=== PATIENT | male | born 1960 | race Caucasian/White ===

== ENCOUNTER → 2016-04-02 | Outpatient (CLI) | payer BC ==
[~2016-04-02] MED LIST: ACET-1256 PO; MULT-506 PO; RIZA10TA19 PO; WARF-283 PO
[2016-04-02 13:56] LABS: INR 2.7 (0.9-1.1); PROTHROMBIN TIME (PATIENT) 30.2 SECONDS (9.0-12.0)
== END | disposition home or self-care (01) ==
LOC: C.LABBC 12:17
PROVIDERS: ATTEND Internal Medicine
DX: I26.99 Other pulmonary embolism without acute cor pulmonale (principal)

== ENCOUNTER → 2016-07-14 | Outpatient (CLI) | payer BC | END | disposition home or self-care (01) | LOC: C.LAB 07:49 | PROVIDERS: ATTEND Nurse Practitioner | DX: C61 Malignant neoplasm of prostate (principal) ==

== ENCOUNTER → 2017-01-07 | Outpatient (CLI) | payer BC ==
[2017-01-07 10:45] LABS: INR 1.2 (0.9-1.1); PROTHROMBIN TIME (PATIENT) 12.9 SECONDS (9.0-12.0)
== END | disposition home or self-care (01) ==
LOC: C.LAB 09:11
PROVIDERS: ATTEND Internal Medicine
DX: D68.59 Other primary thrombophilia (principal); Z86.711 Personal history of pulmonary embolism; I82.403 Acute embolism and thrombosis of unspecified deep veins of lower extremity, bilateral

== ENCOUNTER 2022-08-21 21:58 | Inpatient (IN) ==
[2022-08-21 22:28] LABS: Basophils # (auto) 0.09 K/uL (0-0.2); Basophils % (auto) 0.7 %; Eosinophils # (auto) 0.01 K/uL (0-0.50); Eosinophils % (auto) 0.1 %; Hemoglobin 13.1 g/dl (14.0-18.0); Immature Granulocytes # (auto) 0.03 K/uL (0.01-0.20); Immature Granulocytes % (auto) 0.2 %; Lymphocytes # (auto) 1.32 K/uL (1.2-3.4); Lymphocytes % (auto) 9.9 %; Mean Corpuscular Hemoglobin 30.6 pg (25.0-34.0); Mean Corpuscular Hgb Conc 33.6 g/dL (32.0-36.0); Mean Corpuscular Volume 91.1 fL (80.0-100.0); Mean Platelet Volume 9.3 fL (9.4-12.4); Monocytes # (auto) 1.07 K/uL (0.11-0.59); Monocytes % (auto) 8.1 %; Neutrophils # (auto) 10.75 K/uL (1.40-6.50); Platelet Count 376 K/uL (130-400); RDW Coefficient of Variation 14.3 % (11.5-14.5); RDW Standard Deviation 47.5 fL (36.4-46.3); Red Blood Count 4.28 M/uL (4.70-6.10); White Blood Count 13.27 K/ul (4.8-10.8)
[2022-08-21 22:45] LABS: Alanine Aminotransferase 13 U/L (7-52); Albumin Globulin Ratio 1.1 (0.9-2); Albumin Level 4.2 gm/dl (3.4-5.0); Alkaline Phosphatase 86 U/L (34-104); Anion Gap 7 (3-11); Aspartate Aminotransferase 19 U/L (13-39); BUN Creatinine Ratio 15.7 (10-20); Bilirubin,Total 0.7 mg/dl (0.2-1.0); Blood Urea Nitrogen 22 mg/dl (6-23); Calcium 9.3 mg/dl (8.6-10.3); Carbon Dioxide 25 mmol/L (21-32); Chloride 105 mmol/L (98-107); Est GFR (African American) 61.5 ml/min; Est GFR (Non-African American) 53.1 ml/min; Globulin 3.8 gm/dl (2.5-4.0); Glucose 125 mg/dl (70-99(Fasting)); Potassium 4.2 mmol/L (3.5-5.1); Sodium 137 mmol/L (136-145)
[2022-08-21 22:51] LABS: Troponin I High Sensitivity 14.4 pg/ml (0-20)
[2022-08-21 22:54] LABS: INR 5.2 (0.9-1.1); Partial Thromboplastin Ratio 1.7; Prothrombin Time 51.2 Seconds (9.0-12.0)
[2022-08-21 23:01] LABS: Partial Thromboplastin Time 47.9 Seconds (21.0-31.0)
[2022-08-21] MEDS ORDERED: ONDANSETRON INJ 2 MG/ML 2 ML VIAL IV STA (23:36)
[2022-08-21] MEDS ORDERED: MoRPHine SULFATE 4 MG/ML 1 ML CARP\\VIAL IV STA (23:36)
[2022-08-21] MEDS ORDERED: SODIUM CHLORIDE 0.9% 1000ML 1,000 ML IV ONE (23:37)
--- NOTE | 2022-08-21 23:39 | Emergency Department Note ---
Impression & Plan Abdominal mass ADMIT ED Provider Note HPI: The patient is a 62-year-old gentleman with history of DVT, currently on Coumadin, presents emergency department with chief complaint of left-sided abdominal pain that has been ongoing since around 8:30 this morning. Patient states that he has had worsening pain throughout the day, states earlier this afternoon he was in the shower and also had an episode of lightheadedness but no syncope. Patient denies any vomiting but states he does have nausea. Denies any dysuria or urinary retention. On arrival here to the ED the patient is alert, he is in no acute distress on my initial assessment but does complain of some left-sided abdominal discomfort. ROS: - Per HPI *Outpatient medications and allergy history reviewed. *Pertinent external medical records reviewed. PE: General: Alert HEENT: Normocephalic, trachea midline Eyes: Extraocular eye movement is intact, no scleral erythema Pulmonary: Clear to auscultation bilaterally, no wheezing Cardio: Regular rate and rhythm GI: Abdomen is soft to palpation, there is left-sided abdominal tenderness to palpation without guarding or rigidity : No suprapubic tenderness MSK: No evidence of trauma or malformation of the extremities, no edema Skin: No evidence of rash Neuro: Alert, no focal deficits Psychiatric: Cooperative stunt person: (As interpreted by myself): - An order was placed for continuous cardiac monitoring - Patient was noted to be in sinus rhythm with a rate of 95 EKG: (As interpreted by myself): Rate: 78 Rhythm: Normal sinus rhythm Intervals: Within normal limits ST changes: No ST elevation Time: 2209 Interventions provided in ED: -IV fluid bolus, IV morphine, IV Zofran Differential Diagnosis: Kidney stone, diverticulitis flare, perforated viscus, small bowel obstruction, intra-abdominal mass, amongst other potential pathologies. Medical Decision Making: Shortly after the patient arrived IV was established and lab work obtained, patient was maintained on radiographer cardiac catheterization, lab work obtained shows leukocytosis of 13.2, blood cultures drawn, hemoglobin stable at 13.1, platelet count is within normal limits, coagulation studies do show INR is supratherapeutic at 5.2, patient is on Coumadin, CMP does not show any evidence of acute kidney injury, troponin is negative, low suspicion for PE given that the patient is anticoagulated on Coumadin with supratherapeutic INR, low suspicion for ACS given negative troponin and reassuring EKG in addition to the lack of any chest pain. Chest x-ray reviewed by myself does not show any evidence of acute process. CT imaging of the abdomen pelvis was obtained that shows evidence of a large mass causing chronic appearing left-sided hydronephrosis and partially encasing the left-sided ureter measuring approximately 13 cm in width. Unclear origin of the mass. I did discuss this finding with on-call urology, Dr. Goodrich, recommends the patient be admitted and they will plan for advanced imaging and further management in regards to potential biopsy. Case was then discussed with the on-call hospitalist, Dr. Harris, he was in agreement for admission with urology consultation. Patient's urinalysis shows evidence of 2+ blood but no evidence of infection. Patient was informed of the above findings. He tells me that his pain is improved following IV morphine here in the ED. He is in agreement for admission with urology consultation as is his son at the bedside. Patient was placed for admission in stable condition. Consultants: -Urology, Dr. Munguia -Hospitalist, Dr. Harris Disposition discussion held by myself with: -Patient and his son at the bedside Diagnosis: 1. Intra-abdominal mass, left-sided 2. Hydronephrosis, left-sided, chronic 3. Hematuria, acute 4. Left-sided abdominal pain, acute Disposition: Admission Black Bright DO Emergency Medicine Past Med/Surg History Medical History DVT (deep venous thrombosis) (~2011) History of COVID-19 History of prostate cancer History of pulmonary embolism (~2011) Hx of melanoma of skin Hydronephrosis Hypertension Migraine headache On anticoagulant therapy Primary hypercoagulable state Recurrent deep vein thrombosis (DVT) of both lower extremities Renal colic Sleep apnea Squamous cell carcinoma, face Surgical History H/O prostatectomy (~2014) H/O radical excision of skin lesion History of colonoscopy History of hernia repair History of left cataract extraction Hx of right cataract extraction Hx of splenectomy S/P IVC filter Status post Mohs surgery Family History Mother Cervical cancer Uterine cancer Sister Uterine cancer Father Diabetes Other No family history of adverse response to anesthesia Denies family history of Ovarian cancer Prostate cancer Breast cancer Lung cancer Colorectal cancer Social History Smoking Status: Former smoker Second Hand Exposure: No; Do You Dip or Chew Tobacco: No; Hx Alcohol Use: Yes Alcohol type: beer Alcohol Intake Frequency: Monthly or Less Hx Substance Use: No Preferred Language: Guatemalan Communication Ability: Effective Visual Impairment: No Limitations Hearing Ability: Normal Manager Of Business Operations Required: No Beliefs That Will Affect Care: None marital status: Current Living Situation: Alone current occupational status: employed Feels Safe at Home: Yes Childhood Exposure to Second-Hand Smoke: Yes Diet: regular caffeine: Yes Dental Care, Regularly: Yes Physical Activity Frequency: 5-6 Times per Week Seatbelt Use: sometimes Sunscreen Use: Yes Do you think of yourself as: straight/heterosexual Assistive Devices: None Allergies Allergies Allergy/AdvReac Type Severity Reaction Status Date / Time No Known Drug Allergies Allergy Verified 07/18/22 08:35 Home Meds Home Medications Medication Instructions Recorded Confirmed acetaminophen 500 mg tablet 500 mg PO Q6H PRN 05/03/22 07/18/22 (Tylenol Extra Strength) Previous Rx's Medication Instructions Recorded rizatriptan 10 mg disintegrating 10 mg PO Q2H PRN migraine headache 10/29/18 tablet #18 tabs warfarin 1 mg tablet See Rx Instructions .Route 11/21/21 .COMPLEX #90 tabs warfarin 5 mg tablet See Rx Instructions .Route 11/21/21 .COMPLEX #90 tabs amlodipine 5 mg tablet 5 mg PO QAM #90 tabs 05/03/22 warfarin 2 mg tablet See Rx Instructions .Route 05/03/22 .COMPLEX #135 tabs olmesartan 20 mg tablet 20 mg PO DAILY #30 tabs 06/06/22 Results & Data (ED) Vital Signs Vital Signs - 24 hr 08/21/22 22:03 08/21/22 22:19 08/21/22 22:19 Temperature 36.7 C Temperature Source Temporal Artery Scan Pulse Rate 84 Pulse Rate [Apical] 79 Respiratory Rate 18 19 Respiratory Effort / Characteristics Non-Labored Spontaneous Respiratory Depth Normal Normal Blood Pressure 166/97 H Blood Pressure [Right Arm] 188/106 H Blood Pressure Mean 120 Blood Pressure Mean [Right Arm] 133 Blood Pressure Position Sitting Pulse Oximetry 97 97 Oxygen Delivery Method Room Air Room Air Room Air Sepsis Recent Fever Within 48 Hours No Sepsis New/Unexplained Change in Mental Status No Sepsis Action Taken by Nursing No Action Required 08/21/22 22:19 08/21/22 22:24 08/21/22 22:45 Temperature Temperature Source Pulse Rate 84 Pulse Rate [Apical] 110 H Respiratory Rate 19 Respiratory Effort / Characteristics Respiratory Depth Blood Pressure Blood Pressure [Right Arm] 172/97 H Blood Pressure Mean Blood Pressure Mean [Right Arm] 122 Blood Pressure Position Pulse Oximetry 97 95 Oxygen Delivery Method Room Air Room Air Sepsis Recent Fever Within 48 Hours Sepsis New/Unexplained Change in Mental Status Sepsis Action Taken by Nursing 08/22/22 00:16 Temperature Temperature Source Pulse Rate 93 H Pulse Rate [Apical] Respiratory Rate 12 Respiratory Effort / Characteristics Respiratory Depth Blood Pressure 195/110 H Blood Pressure [Right Arm] Blood Pressure Mean 138 Blood Pressure Mean [Right Arm] Blood Pressure Position Pulse Oximetry Oxygen Delivery Method Sepsis Recent Fever Within 48 Hours Sepsis New/Unexplained Change in Mental Status Sepsis Action Taken by Nursing Laboratory Data 08/21/22 22:08 08/21/22 22:08 Lab Results 08/21/22 08/21/22 08/21/22 Range/Units 22:08 22:08 22:08 WBC 13.27 H (4.8-10.8) K/ul RBC 4.28 L (4.70-6.10) M/uL Hgb 13.1 L (14.0-18.0) g/dl Hct 39.0 L (42.0-52.0) % MCV 91.1 (80.0-100.0) fL MCH 30.6 (25.0-34.0) pg MCHC 33.6 (32.0-36.0) g/dL RDW Std Deviation 47.5 H (36.4-46.3) fL RDW Coeff of Ángel 14.3 (11.5-14.5) % Plt Count 376 (130-400) K/uL MPV 9.3 L (9.4-12.4) fL Immature Gran % (Auto) 0.2 % Neut % (Auto) 81.0 % Lymph % (Auto) 9.9 % [place] % (Auto) 8.1 % Eos % (Auto) 0.1 % Baso % (Auto) 0.7 % Neut # (Auto) 10.75 H (1.40-6.50) K/uL Lymph # (Auto) 1.32 (1.2-3.4) K/uL [place] # (Auto) 1.07 H (0.11-0.59) K/uL Eos # (Auto) 0.01 (0-0.50) K/uL Baso # (Auto) 0.09 (0-0.2) K/uL Immature Gran # (Auto) 0.03 (0.01-0.20) K/uL PT 51.2 H (9.0-12.0) Seconds INR 5.2 H (0.9-1.1) APTT 47.9 H* (21.0-31.0) Seconds PTT Ratio 1.7 Sodium 137 (136-145) mmol/L Potassium 4.2 (3.5-5.1) mmol/L Chloride 105 (98-107) mmol/L Carbon Dioxide 25 (21-32) mmol/L Anion Gap 7 (3-11) BUN 22 (6-23) mg/dl Creatinine 1.40 (0.6-1.4) mg/dl Est Cr Clr Drug Dosing Not Reportable Est GFR ( Amer) 61.5 ml/min Est GFR (Non-Af Amer) 53.1 ml/min BUN/Creatinine Ratio 15.7 (10-20) Glucose 125 H (70-99(Fasting)) mg/dl Calcium 9.3 (8.6-10.3) mg/dl Total Bilirubin 0.7 (0.2-1.0) mg/dl AST 19 (13-39) U/L ALT 13 (7-52) U/L Alkaline Phosphatase 86 (34-104) U/L Troponin I High Sens 14.4 (0-20) pg/ml Total Protein 8.0 (6.0-8.3) gm/dl Albumin 4.2 (3.4-5.0) gm/dl Globulin 3.8 (2.5-4.0) gm/dl Albumin/Globulin Ratio 1.1 (0.9-2) Urine Color Urine Appearance (Clear) Urine pH (4.5-7.5) Ur Specific [place] (1.000-1.030) Urine Protein (Negative) Urine Glucose (UA) (Negative) Urine Ketones (Negative) Urine Blood (Negative) Urine Nitrite (Negative) Urine Bilirubin (Negative) Urine Urobilinogen (Negative) Ur Leukocyte Esterase (Negative) Urine WBC (Auto) (0-5) /hpf Urine RBC (Auto) (0-4) /hpf U Hyaline Cast (Auto) (0-5) /lpf U Epithel Cells (Auto) (0-5) /lpf Urine Bacteria (Auto) (Negative) SARS-CoV-2, RNA, NAAT (NEGATIVE) 08/22/22 08/22/22 Range/Units 00:50 01:10 WBC (4.8-10.8) K/ul RBC (4.70-6.10) M/uL Hgb (14.0-18.0) g/dl Hct (42.0-52.0) % MCV (80.0-100.0) fL MCH (25.0-34.0) pg MCHC (32.0-36.0) g/dL RDW Std Deviation (36.4-46.3) fL RDW Coeff of Ángel (11.5-14.5) % Plt Count (130-400) K/uL MPV (9.4-12.4) fL Immature Gran % (Auto) % Neut % (Auto) % Lymph % (Auto) % [place] % (Auto) % Eos % (Auto) % Baso % (Auto) % Neut # (Auto) (1.40-6.50) K/uL Lymph # (Auto) (1.2-3.4) K/uL [place] # (Auto) (0.11-0.59) K/uL Eos # (Auto) (0-0.50) K/uL Baso # (Auto) (0-0.2) K/uL Immature Gran # (Auto) (0.01-0.20) K/uL PT (9.0-12.0) Seconds INR (0.9-1.1) APTT (21.0-31.0) Seconds PTT Ratio Sodium (136-145) mmol/L Potassium (3.5-5.1) mmol/L Chloride (98-107) mmol/L Carbon Dioxide (21-32) mmol/L Anion Gap (3-11) BUN (6-23) mg/dl Creatinine (0.6-1.4) mg/dl Est Cr Clr Drug Dosing Est GFR ( Amer) ml/min Est GFR (Non-Af Amer) ml/min BUN/Creatinine Ratio (10-20) Glucose (70-99(Fasting)) mg/dl Calcium (8.6-10.3) mg/dl Total Bilirubin (0.2-1.0) mg/dl AST (13-39) U/L ALT (7-52) U/L Alkaline Phosphatase (34-104) U/L Troponin I High Sens (0-20) pg/ml Total Protein (6.0-8.3) gm/dl Albumin (3.4-5.0) gm/dl Globulin (2.5-4.0) gm/dl Albumin/Globulin Ratio (0.9-2) Urine Color Yellow Urine Appearance Clear (Clear) Urine pH 7.5 (4.5-7.5) Ur Specific [place] 1.022 (1.000-1.030) Urine Protein Negative (Negative) Urine Glucose (UA) Negative (Negative) Urine Ketones Trace H (Negative) Urine Blood 2+ H (Negative) Urine Nitrite Negative (Negative) Urine Bilirubin Negative (Negative) Urine Urobilinogen Negative (Negative) Ur Leukocyte Esterase Negative (Negative) Urine WBC (Auto) 0 (0-5) /hpf Urine RBC (Auto) 10-30 H (0-4) /hpf U Hyaline Cast (Auto) 0 (0-5) /lpf U Epithel Cells (Auto) 0-5 (0-5) /lpf Urine Bacteria (Auto) Negative (Negative) SARS-CoV-2, RNA, NAAT NEGATIVE (NEGATIVE) Administered Medications Discontinued Medications Sodium Chloride (Nss 1000ml) 1,000 mls @ 999 mls/hr IV .Q1H1M ONE Stop: 08/22/22 00:37 Last Infusion: 08/22/22 00:52 Dose: 0 mls/hr Documented By: Admin: 08/21/22 23:44 Dose: 999 mls/hr Documented By: KAUSHAL Ioversol (Optiray 320 100ml) 100 ml IV ONCE ONE Stop: 08/21/22 23:59 Last Admin: 08/21/22 23:58 Dose: 87 ml Documented By: SHANIQUA Morphine Sulfate (Morphine Sulfate 4 Mg/Ml 1 Ml Carp\Vial) 4 mg IV NOW STA Stop: 08/21/22 23:37 Last Admin: 08/21/22 23:41 Dose: 4 mg Documented By: KAUSHAL Morphine Sulfate (Morphine Sulfate 4 Mg/Ml 1 Ml Carp\Vial) 4 mg IV NOW STA Stop: 08/22/22 00:23 Last Admin: 08/22/22 00:25 Dose: 4 mg Documented By: KAUSHAL Ondansetron HCl (Ondansetron Inj 2 Mg/Ml 2 Ml Vial) 4 mg IV NOW STA Stop: 08/21/22 23:37 Last Admin: 08/21/22 23:40 Dose: 4 mg Documented By: KAUSHAL Imaging Data Radiologist's Impression: Abdomen/Pelvis CT 08/21/22 23:36 Exam(s): CT ABDOMEN + PELVIS With Contrast IV Amt: 87 ml optiray 320 EXAM: CT Abdomen and Pelvis With Intravenous Contrast CLINICAL HISTORY: Reason for exam: Left sided abd pain. TECHNIQUE: Axial computed tomography images of the abdomen and pelvis with intravenous contrast. Automated exposure control was utilized for the study. A dose lowering technique was utilized adhering to the principles of ALARA. CONTRAST: Patient received 87 ml optiray 320 of IV contrast COMPARISON: No relevant prior studies available. FINDINGS: Lung bases: Unremarkable. No mass. No consolidation. ABDOMEN: Liver: Unremarkable. No mass. Gallbladder and bile ducts: Unremarkable. No calcified stones. No ductal dilation. Pancreas: Unremarkable. No mass. No ductal dilation. Spleen: There are nodular implants throughout the abdomen which may reflect splenosis. The spleen is absent. Adrenals: Unremarkable. No mass. Kidneys and ureters: There is severe left-sided hydroureteronephrosis which appears chronic. There is significant associated renal cortical thinning. There is a large soft tissue mass in the region of the left proximal ureter which measures 8.3 x 6.8 x 13.7 cm (image 57 series 2 and image 36 series 300). Extensive left-sided cain-nephric stranding is noted. Stomach and bowel: Unremarkable. No obstruction. No mucosal thickening. PELVIS: Appendix: No findings to suggest acute appendicitis. Bladder: Unremarkable. No mass. Reproductive: Unremarkable as visualized. ABDOMEN and PELVIS: Intraperitoneal space: Unremarkable. No free air. No significant fluid collection. Bones/joints: There is extensive degenerative disease of the thoracolumbar spine. No acute fracture. No dislocation. Soft tissues: Unremarkable. Vasculature: Unremarkable. No abdominal aortic aneurysm. Lymph nodes: Unremarkable. No enlarged lymph nodes. IMPRESSION: 1. Severe left hydronephrosis which appears chronic and is related to a 13 cm mass which appears to encase and invade the ureter. Is unclear if this originates from the ureter or is a extra ureteral process and biopsy would be necessary to make that determination. 2. 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 Metastatic disease could not be excluded in this setting. Electronically signed by: Sunil Naylor MD 08/22/22 00:34 AM Discharge Plan Visit Data Chief Complaint: Chest Pain Stated Complaint: CHEST PAIN,FATIGUE,NEAR SYNCOPE ED Provider: Black Bright Discharge Problem: Abdominal mass Forms Stand Alone Forms: [facility] Prescriptions Prescriptions: No Action warfarin 5 mg tablet See Rx Instructions .ROUTE .COMPLEX Qty: 90 3RF Dose Instruction: TAKE 1 TABLET BY MOUTH ONCE DAILY. SEE PROTOCOL Rx Instructions: TAKE 1 TABLET BY MOUTH ONCE DAILY. SEE PROTOCOL warfarin 1 mg tablet See Rx Instructions .ROUTE .COMPLEX Qty: 90 3RF Dose Instruction: Take 1 tablet by mouth daily Rx Instructions: Take 1 tablet by mouth daily acetaminophen [Tylenol Extra Strength] 500 mg tablet 500 mg PO Q6H PRN warfarin 2 mg tablet See Rx Instructions .ROUTE .COMPLEX Qty: 135 1RF Dose Instruction: TAKE 1 & 1/2 (ONE & ONE-HALF) TABLETS BY MOUTH ONCE DAILY Rx Instructions: TAKE 1 & 1/2 (ONE & ONE-HALF) TABLETS BY MOUTH ONCE DAILY amlodipine 5 mg tablet 5 mg PO QAM Qty: 90 3RF Rx Instructions: Take 1 tablet by mouth once daily olmesartan 20 mg tablet 20 mg PO DAILY Qty: 30 2RF rizatriptan 10 mg tablet,disintegrating 10 mg PO Q2H PRN (Reason: migraine headache) Qty: 18 0RF Referrals Referrals: Russell Roger MD [Primary Care Provider] -
[2022-08-21] MEDS ORDERED: OPTIRAY 320 100ml IV ONE (23:58)
[2022-08-22] MEDS ORDERED: MoRPHine SULFATE 4 MG/ML 1 ML CARP\\VIAL IV STA (00:22)
--- NOTE | 2022-08-22 00:35 | CT Scan Report ---
Exam(s): CT ABDOMEN + PELVIS With Contrast IV Amt: 87 ml optiray 320 EXAM: CT Abdomen and Pelvis With Intravenous Contrast CLINICAL HISTORY: Reason for exam: Left sided abd pain. TECHNIQUE: Axial computed tomography images of the abdomen and pelvis with intravenous contrast. Automated exposure control was utilized for the study. A dose lowering technique was utilized adhering to the principles of ALARA. CONTRAST: Patient received 87 ml optiray 320 of IV contrast COMPARISON: No relevant prior studies available. FINDINGS: Lung bases: Unremarkable. No mass. No consolidation. ABDOMEN: Liver: Unremarkable. No mass. Gallbladder and bile ducts: Unremarkable. No calcified stones. No ductal dilation. Pancreas: Unremarkable. No mass. No ductal dilation. Spleen: There are nodular implants throughout the abdomen which may reflect splenosis. The spleen is absent. Adrenals: Unremarkable. No mass. Kidneys and ureters: There is severe left-sided hydroureteronephrosis which appears chronic. There is significant associated renal cortical thinning. There is a large soft tissue mass in the region of the left proximal ureter which measures 8.3 x 6.8 x 13.7 cm (image 57 series 2 and image 36 series 300). Extensive left-sided cain-nephric stranding is noted. Stomach and bowel: Unremarkable. No obstruction. No mucosal thickening. PELVIS: Appendix: No findings to suggest acute appendicitis. Bladder: Unremarkable. No mass. Reproductive: Unremarkable as visualized. ABDOMEN and PELVIS: Intraperitoneal space: Unremarkable. No free air. No significant fluid collection. Bones/joints: There is extensive degenerative disease of the thoracolumbar spine. No acute fracture. No dislocation. Soft tissues: Unremarkable. Vasculature: Unremarkable. No abdominal aortic aneurysm. Lymph nodes: Unremarkable. No enlarged lymph nodes. IMPRESSION: 1. Severe left hydronephrosis which appears chronic and is related to a 13 cm mass which appears to encase and invade the ureter. Is unclear if this originates from the ureter or is a extra ureteral process and biopsy would be necessary to make that determination. 2. 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 Metastatic disease could not be excluded in this setting. Electronically signed by: Sunil Naylor MD 08/22/22 00:34 AM
[2022-08-22 01:18] LABS: Appearance Urine Clear (Clear); Bacteria Urine Automated Negative (Negative); Bilirubin Urine Negative (Negative); Blood Urine 2+ (Negative); Cast Urine Automated 0 /lpf (0-5); Color Urine Yellow; Epithelial Cell Urine Auto 0-5 /lpf (0-5); Glucose Urine UA Negative (Negative); Ketones Urine Trace (Negative); Leukocyte Esterase Urine Negative (Negative); Nitrite Urine Negative (Negative); Protein Urine Negative (Negative); Specific Gravity Urine 1.022 (1.000-1.030); Urobilinogen Urine Negative (Negative); WBC Urine Automated 0 /hpf (0-5); pH Urine 7.5 (4.5-7.5)
[2022-08-22] MEDS ORDERED: ACETAMINOPHEN 325 MG TAB PO PRN (03:29)
--- NOTE | 2022-08-22 06:00 | History & Physical Report ---
Date of Service August 22, 2022 Assessment & Plan (1) Abdominal mass: Plan: Patient presents to ED with left-sided abdominal pain CT imaging reveals "Severe left hydronephrosis which appears chronic and is related to a 13 cm mass which appears to encase and invade the ureter. Is unclear if this originates from the ureter or is a extra ureteral process and biopsy would be necessary to make that determination.multiple small soft tissue nodules in the upper abdomen which could reflect splenosis as the patient appears to be status post splenectomy. Metastatic disease could not be excluded in this setting." Urology Dr. Goodrich contacted from ED who recommended advanced imaging and possible biopsy in a.m. Defer hematology oncology consultation to a.m. team based on further imaging (2) Hydronephrosis of left kidney: Plan: Patient found to have left-sided hydronephrosis on CT imaging and urinalysis shows evidence of microscopic hematuria. Hydronephrosis also described to be chronic but still urologic intervention would be necessary to preserve renal function. 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 in the past Patient on anticoagulation with Coumadin Obtain daily INR and adjust warfarin dose based on INR target of 2-2.5 (5) Prostate cancer: Plan: Patient is status post prostatectomy No evidence of any acute urine outlet obstruction noted (6) Hypertension: Plan: Continue home dose of amlodipine 5 mg and olmesartan 20 mg with hold parameters Monitor blood pressure trend and titrate meds as tolerated Admission and Anticipated Discharge Date Admission Date: August 22, 2022 History of Present Illness Chief Complaint: Patient presents to ED with complaints of left-sided abdominal pain Primary Care Provider: Russell Roger MD This is a 62-year-old male with past medical history significant history of hypertension, history of hypercoagulable state status post DVT and PE on anti coagulation with Coumadin who presents to the emergency department with complaints of left-sided abdominal pain. Patient reports that he started experiencing intermittent left-sided abdominal pain since the morning but this is progressively worsened over the day and hence patient presents to ED for further evaluation. Patient reports her pain had worsened to a point where he had experienced lightheadedness while he was in the shower but did not have a syncopal episode and and no head trauma reported. Patient however presents to ED due to worsening pain. Patient otherwise denies any chest pain or any other new vomiting symptoms but reports some intermittent nausea. Patient was evaluated in the ED and was found to have elevated INR consistent with with him being on warfarin therapy. CT of the abdomen was obtained that shows a large mass causing left-sided hydronephrosis and partially encasing the left-sided ureter measuring approximately 13 cm in width. Urologist Dr. Munguia contacted by ED and based on his recommendation patient being admitted for further advanced imaging with plans for potential biopsy in a.m. Allergies Allergy/AdvReac Type Severity Reaction Status Date / Time No Known Drug Allergies Allergy Verified 07/18/22 08:35 Home Medications Medication Instructions Recorded Confirmed Type rizatriptan 10 mg disintegrating 10 mg PO Q2H PRN migraine headache 10/29/18 07/18/22 Rx tablet #18 tabs warfarin 1 mg tablet See Rx Instructions .Route 11/21/21 07/18/22 Rx .COMPLEX #90 tabs warfarin 5 mg tablet See Rx Instructions .Route 11/21/21 07/18/22 Rx .COMPLEX #90 tabs acetaminophen 500 mg tablet 500 mg PO Q6H PRN 05/03/22 07/18/22 History (Tylenol Extra Strength) amlodipine 5 mg tablet 5 mg PO QAM #90 tabs 05/03/22 07/18/22 Rx warfarin 2 mg tablet See Rx Instructions .Route 05/03/22 07/18/22 Rx .COMPLEX #135 tabs olmesartan 20 mg tablet 20 mg PO DAILY #30 tabs 06/06/22 07/18/22 Rx Past Med/Surg History Medical History DVT (deep venous thrombosis) (~2011) History of COVID-19 History of prostate cancer History of pulmonary embolism (~2011) Hx of melanoma of skin Hydronephrosis Hypertension Migraine headache On anticoagulant therapy Primary hypercoagulable state Recurrent deep vein thrombosis (DVT) of both lower extremities Renal colic Sleep apnea Squamous cell carcinoma, face Surgical History H/O prostatectomy (~2014) H/O radical excision of skin lesion History of colonoscopy History of hernia repair History of left cataract extraction Hx of right cataract extraction Hx of splenectomy S/P IVC filter Status post Mohs surgery Family History Mother Cervical cancer Uterine cancer Sister Uterine cancer Father Diabetes Other No family history of adverse response to anesthesia Denies family history of Ovarian cancer Prostate cancer Breast cancer Lung cancer Colorectal cancer Social History Smoking Status: Never smoker Second Hand Exposure: No; Do You Dip or Chew Tobacco: No; Hx Alcohol Use: No Hx Substance Use: No Preferred Language: Kinyarwanda Communication Ability: Effective Visual Impairment: No Limitations Hearing Ability: Normal Aircraft Refueller Required: No Beliefs That Will Affect Care: None marital status: Current Living Situation: Alone current occupational status: employed Other Information That Helps Us Care for You: No Feels Safe at Home: Yes Safety Concerns: Feels Safe At This Time Childhood Exposure to Second-Hand Smoke: Yes Diet: regular caffeine: Yes Dental Care, Regularly: Yes Physical Activity Frequency: 5-6 Times per Week Seatbelt Use: sometimes Sunscreen Use: Yes Do you think of yourself as: straight/heterosexual Assistive Devices: Glasses Review of Systems Review of Systems: Constitutional-no fever or chills ENT- no epistaxis, no sore throat Respiratory- no shortness of breath Cardiac-no palpitations, no chest pain, GI- nausea present, no active vomiting, reports abdominal pain - no dysuria, Musculoskeletal-no joint pain, no muscle tenderness Skin-no bruising, no rashes, no pruritus Neuro-no isolated weakness, no paresthesia, Physical Exam Physical Exam: Head and ENT no thyroid enlargement trachea midline Cardiovascular S1-S2 are normal no S3 Lungs bilateral air entry fair no wheezing Abdomen soft mild distention no rebound tenderness Extremity shows trace edema Neurologically no focal deficits Skin shows no rash no cyanosis Results & Data Results & Data Vital Signs (Past 12 Hours) Vital Signs Temp Pulse Pulse Resp BP BP Pulse Ox 08/22/22 05:44 96 H 08/22/22 03:00 81 23 176/95 H 08/22/22 02:30 85 21 08/22/22 01:30 81 22 08/22/22 00:16 93 H 12 195/110 H 08/21/22 22:45 110 H 19 172/97 H 95 08/21/22 22:24 84 08/21/22 22:19 97 08/21/22 22:19 79 19 188/106 H 97 08/21/22 22:19 08/21/22 22:03 36.7 C 84 18 166/97 H 97 O2 Del Method 08/22/22 05:44 08/22/22 03:00 08/22/22 02:30 08/22/22 01:30 08/22/22 00:16 08/21/22 22:45 Room Air 08/21/22 22:24 08/21/22 22:19 Room Air 08/21/22 22:19 Room Air 08/21/22 22:19 Room Air 08/21/22 22:03 Room Air Laboratory Results Short CBC 08/21/22 Range/Units 22:08 WBC 13.27 H (4.8-10.8) K/ul Hgb 13.1 L (14.0-18.0) g/dl Hct 39.0 L (42.0-52.0) % Plt Count 376 (130-400) K/uL BMP 08/21/22 22:08 Sodium 137 Potassium 4.2 Chloride 105 Carbon Dioxide 25 BUN 22 Creatinine 1.40 Glucose 125 H Calcium 9.3 Liver Function 08/21/22 Range/Units 22:08 Total Bilirubin 0.7 (0.2-1.0) mg/dl AST 19 (13-39) U/L ALT 13 (7-52) U/L Alkaline Phosphatase 86 (34-104) U/L Albumin 4.2 (3.4-5.0) gm/dl Urine 08/22/22 Range/Units 00:50 Urine Color Yellow Urine Appearance Clear (Clear) Urine pH 7.5 (4.5-7.5) Ur Specific [place] 1.022 (1.000-1.030) Urine Protein Negative (Negative) Urine Glucose (UA) Negative (Negative) Diagnostic Findings Chest X-Ray 08/21/22 22:06 SINGLE VIEW CHEST CLINICAL HISTORY: Atypical chest pain FINDINGS: An AP, portable, upright chest radiograph is compared to study dated 02/03/2015. Correlation is made with chest CT dated 09/09/2012. The heart is enlarged. The pulmonary vasculature is noncongested. There is bibasilar scarring/atelectasis. No airspace consolidation or large pleural effusion is identified. No pneumothorax is seen. The skeletal structures are osteopenic. The bony thorax is grossly intact. IMPRESSION: Cardiomegaly with no active disease in the chest. ACT 112: Negative or not required by law. Electronically signed by: Eran Swartz M.D. 08/22/2022 7:33 AM Abdomen/Pelvis CT 08/21/22 23:36 Exam(s): CT ABDOMEN + PELVIS With Contrast IV Amt: 87 ml optiray 320 EXAM: CT Abdomen and Pelvis With Intravenous Contrast CLINICAL HISTORY: Reason for exam: Left sided abd pain. TECHNIQUE: Axial computed tomography images of the abdomen and pelvis with intravenous contrast. Automated exposure control was utilized for the study. A dose lowering technique was utilized adhering to the principles of ALARA. CONTRAST: Patient received 87 ml optiray 320 of IV contrast COMPARISON: No relevant prior studies available. FINDINGS: Lung bases: Unremarkable. No mass. No consolidation. ABDOMEN: Liver: Unremarkable. No mass. Gallbladder and bile ducts: Unremarkable. No calcified stones. No ductal dilation. Pancreas: Unremarkable. No mass. No ductal dilation. Spleen: There are nodular implants throughout the abdomen which may reflect splenosis. The spleen is absent. Adrenals: Unremarkable. No mass. Kidneys and ureters: There is severe left-sided hydroureteronephrosis which appears chronic. There is significant associated renal cortical thinning. There is a large soft tissue mass in the region of the left proximal ureter which measures 8.3 x 6.8 x 13.7 cm (image 57 series 2 and image 36 series 300). Extensive left-sided cain-nephric stranding is noted. Stomach and bowel: Unremarkable. No obstruction. No mucosal thickening. PELVIS: Appendix: No findings to suggest acute appendicitis. Bladder: Unremarkable. No mass. Reproductive: Unremarkable as visualized. ABDOMEN and PELVIS: Intraperitoneal space: Unremarkable. No free air. No significant fluid collection. Bones/joints: There is extensive degenerative disease of the thoracolumbar spine. No acute fracture. No dislocation. Soft tissues: Unremarkable. Vasculature: Unremarkable. No abdominal aortic aneurysm. Lymph nodes: Unremarkable. No enlarged lymph nodes. IMPRESSION: 1. Severe left hydronephrosis which appears chronic and is related to a 13 cm mass which appears to encase and invade the ureter. Is unclear if this originates from the ureter or is a extra ureteral process and biopsy would be necessary to make that determination. 2. 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 Metastatic disease could not be excluded in this setting. Electronically signed by: Sunil Naylor MD 08/22/22 00:34 AM Code Status & VTE Plan VTE Prophylaxis Plan VTE Prophylaxis will be ordered: Yes PG Care Time/CCT Total # of Minutes Spent Total Time Spent with Patient: Total time spent is greater than 50% in coordination of care (as documented) at patient's floor/unit and/or counseling patient: Coding Level of Care Code 01587 INT INP/OBS CARE 2/55MIN Diagnoses Abdominal mass R19.00 Hydronephrosis of left kidney N13.30 CKD (chronic kidney disease), stage III N18.30 Primary hypercoagulable state D68.59 Prostate cancer C61 Hypertension I10
[2022-08-22] MEDS ORDERED: MoRPHine SULFATE 2 MG/ML CARP IV PRN ×2 (06:03→08:50)
--- NOTE | 2022-08-22 07:34 | XRay Report ---
SINGLE VIEW CHEST CLINICAL HISTORY: Atypical chest pain FINDINGS: An AP, portable, upright chest radiograph is compared to study dated 02/03/2015. Correlatio n is made with chest CT dated 09/09/2012. The heart is enlarged. The pulmonary vasculature is nonconge sted. There is bibasilar scarring/atelectasis. No airspace consolidation or large pleural effusion is identified. No pneumothorax is seen. The skeletal structures are osteopenic. The bony thorax is marion sly intact. IMPRESSION: Cardiomegaly with no active disease in the chest. ACT 112: Negative or not required by law. Electronically signed by: Eran Swartz M.D. 08/22/2022 7:33 AM
--- NOTE | 2022-08-22 07:50 | Hospitalist Progress Note ---
Date of Service August 22, 2022 Assessment & Plan (1) Abdominal mass: (2) Hydronephrosis of left kidney: Plan Mr. Orozco is a 62 y/o M with PMHX of recurrent DVTs with PE on Coumadin (INR 5.2) s/p IVC filter, prostate cancer s/p prostatectomy 2014, non-metastatic melanoma 2019, and HTN who presented with L-sided abd pain for 1 day #Left abdominal mass mass #Hydronephrosis L kidney CT abd/pelvis: 13cm mass, L-sided severe hydronephrosis, partially encased L- ureter, renal cortical thinning, extensive L-sided perinephric stranding Urology: tissue biopsy next step, as differential for mass is broad at this point. IR on board, believes they can get biopsy through IR retroperitoneal CT approach. INR goal < 1.5 for biopsy, currently at 4.6. Vitamin K administered with INR re- check later today PSA 0.139. WBC 19.63, neutrophils 10.75 Analgesia: Dilaudid 0.75 mg IV q4hr PRN #prostate cancer s/p prostatectomy in 2014 PSA 0.139 on 08/21/22 #HTN Amlodipine 5mg po qam Losartan 50mg po daily #Recurrent DVT IVC filter Holding Coumadin in anticipation of renal mass biopsy FENGI: heart healthy, carb consistent dinner tonight then NPO at midnight. LR fluids at 125 DVT ppx: holding Coumadin in anticipation of renal mass biopsy Full code Admission and Anticipated Discharge Date Admission Date: August 22, 2022 Supervising Physician Co-Signing Physician Notes Medical Student Supervision Note: I was personally present during medical student patient encounter and independently interviewed and examined the patient and verified the medina history and physical, reviewed labs and image studies, discussed the case with Rakesh Martinez and agree with the findings and care plan. left flank pain with CT finding of abdominal mass - awaiting urology intervention once INR below 1.5. s/p Vitamin K. Warfarin on hold. Subjective Mr. Orozco notes that he came to the ED after worsening L-sided abdominal pain reaching 9.5/10 in intensity for the past day. He hasn't had abdominal pain like this before. The pain is constant and worse with movement. Hard to find a comfortable position. It In the week leading up to hospitalization, he experienced dizziness on 08/19 and worsening fatigue. No diarrhea or bloody stool. Had 5 regular bowel movements yesterday. Reports some nausea, no vomiti ng. In addition he notes leg cramps in both legs. His last colonoscopy was 11/06/21 at [facility] which showed small-mouthed diverticula and internal hemorrhoids. In 2019 he got his melanoma excised at [facility], and to his knowledge his melanoma was not metastatic. FHx: no known family history of GI malignancy. SHX: runs heavy equipment. Has not smoked cigarettes in 40 years. His last alcoholic beverage was a couple weeks ago. Review of Systems Review of Systems: All systems reviewed & are unremarkable except as noted in HPI & below Physical Exam Physical Exam: Appearance: lying supine in bed with lights off, appears uncomfortable and in pain, occasionally grimaces in pain Respiratory: Shallow breahting due to pain, CTA BL without rales/rhonchi/wheeze Cardiovascular: Rate in 90s, normal S1/S2, otherwise no M/R/G No LE edema bilaterally Katherine's sign negative bilaterally Gastrointestinal (Abdomen): Abdominal distention, splenectomy scar, 2 minor bruises noted near umbilicus Palpation elicits tenderness in all quadrants, with guarding, L worse than R Firm mass palpated on L flank Musculoskeletal: ROM of L/R hip intact; L hip flexion elicits abdominal pain Results & Data Results & Data Vital Signs (Past 12 Hours) Vital Signs Temp Pulse Pulse Resp BP BP Pulse Ox 08/22/22 06:55 84 08/22/22 05:44 96 H 08/22/22 03:00 81 23 176/95 H 08/22/22 02:30 85 21 08/22/22 01:30 81 22 08/22/22 00:16 93 H 12 195/110 H 08/21/22 22:45 110 H 19 172/97 H 95 08/21/22 22:24 84 08/21/22 22:19 97 08/21/22 22:19 79 19 188/106 H 97 08/21/22 22:19 08/21/22 22:03 36.7 C 84 18 166/97 H 97 O2 Del Method 08/22/22 06:55 08/22/22 05:44 08/22/22 03:00 08/22/22 02:30 08/22/22 01:30 08/22/22 00:16 08/21/22 22:45 Room Air 05/30/23 22:24 08/21/22 22:19 Room Air 08/21/22 22:19 Room Air 08/21/22 22:19 Room Air 08/21/22 22:03 Room Air Diagnostic Findings Laboratory Results WBC 19.63 K/ul (4.8-10.8) H 08/22/22 08:42 RBC 3.99 M/uL (4.70-6.10) L 08/22/22 08:42 Hgb 12.3 g/dl (14.0-18.0) L 08/22/22 08:42 Hct 35.7 % (42.0-52.0) L 08/22/22 08:42 MCV 89.5 fL (80.0-100.0) 08/22/22 08:42 MCH 30.8 pg (25.0-34.0) 08/22/22 08:42 MCHC 34.5 g/dL (32.0-36.0) 08/22/22 08:42 RDW Std Deviation 46.0 fL (36.4-46.3) 08/22/22 08:42 RDW Coeff of Ángel 14.2 % (11.5-14.5) 08/22/22 08:42 Plt Count 334 K/uL (130-400) 08/22/22 08:42 MPV 10.0 fL (9.4-12.4) 08/22/22 08:42 Immature Gran % (Auto) 0.2 % 08/21/22 22:08 Neut % (Auto) 81.0 % 08/21/22 22:08 Lymph % (Auto) 9.9 % 08/21/22 22:08 [place] % (Auto) 8.1 % 08/21/22 22:08 Eos % (Auto) 0.1 % 08/21/22 22:08 Baso % (Auto) 0.7 % 08/21/22 22:08 Neut # (Auto) 10.75 K/uL (1.40-6.50) H 08/21/22 22:08 Lymph # (Auto) 1.32 K/uL (1.2-3.4) 08/21/22 22:08 [place] # (Auto) 1.07 K/uL (0.11-0.59) H 08/21/22 22:08 Eos # (Auto) 0.01 K/uL (0-0.50) 08/21/22 22:08 Baso # (Auto) 0.09 K/uL (0-0.2) 08/21/22 22:08 Immature Gran # (Auto) 0.03 K/uL (0.01-0.20) 08/21/22 22:08 PT 45.5 Seconds (9.0-12.0) H 08/22/22 08:42 INR 4.6 (0.9-1.1) H 08/22/22 08:42 APTT 47.9 Seconds (21.0-31.0) H* 08/21/22 22:08 PTT Ratio 1.7 08/21/22 22:08 Sodium 134 mmol/L (136-145) L 08/22/22 08:42 Potassium 3.9 mmol/L (3.5-5.1) 08/22/22 08:42 Chloride 104 mmol/L (98-107) 08/22/22 08:42 Carbon Dioxide 23 mmol/L (21-32) 08/22/22 08:42 Anion Gap 7 (3-11) 08/22/22 08:42 BUN 16 mg/dl (6-23) 08/22/22 08:42 Creatinine 1.07 mg/dl (0.6-1.4) D 08/22/22 08:42 Est Cr Clr Drug Dosing 77.6 ml/min 08/22/22 08:42 Est GFR ( Amer) 85.2 ml/min 08/22/22 08:42 Est GFR (Non-Af Amer) 73.5 ml/min 08/22/22 08:42 BUN/Creatinine Ratio 15.0 (10-20) 08/22/22 08:42 Glucose 146 mg/dl (70-99(Fasting)) H 08/22/22 08:42 Calcium 9.2 mg/dl (8.6-10.3) 08/22/22 08:42 Total Bilirubin 0.7 mg/dl (0.2-1.0) 08/21/22 22:08 AST 19 U/L (13-39) 08/21/22 22:08 ALT 13 U/L (7-52) 08/21/22 22:08 Alkaline Phosphatase 86 U/L (34-104) 08/21/22 22:08 Troponin I High Sens 14.4 pg/ml (0-20) 08/21/22 22:08 Total Protein 8.0 gm/dl (6.0-8.3) 08/21/22 22:08 Albumin 4.2 gm/dl (3.4-5.0) 08/21/22 22:08 Globulin 3.8 gm/dl (2.5-4.0) 08/21/22 22:08 Albumin/Globulin Ratio 1.1 (0.9-2) 08/21/22 22:08 Prostate Specific Ag 0.139 ng/ml (0-4) 08/21/22 22:15 Urine Color Yellow 08/22/22 00:50 Urine Appearance Clear (Clear) 08/22/22 00:50 Urine pH 7.5 (4.5-7.5) 08/22/22 00:50 Ur Specific [place] 1.022 (1.000-1.030) 08/22/22 00:50 Urine Protein Negative (Negative) 08/22/22 00:50 Urine Glucose (UA) Negative (Negative) 08/22/22 00:50 Urine Ketones Trace (Negative) H 08/22/22 00:50 Urine Blood 2+ (Negative) H 08/22/22 00:50 Urine Nitrite Negative (Negative) 08/22/22 00:50 Urine Bilirubin Negative (Negative) 08/22/22 00:50 Urine Urobilinogen Negative (Negative) 08/22/22 00:50 Ur Leukocyte Esterase Negative (Negative) 08/22/22 00:50 Urine WBC (Auto) 0 /hpf (0-5) 08/22/22 00:50 Urine RBC (Auto) 10-30 /hpf (0-4) H 08/22/22 00:50 U Hyaline Cast (Auto) 0 /lpf (0-5) 08/22/22 00:50 U Epithel Cells (Auto) 0-5 /lpf (0-5) 08/22/22 00:50 Urine Bacteria (Auto) Negative (Negative) 08/22/22 00:50 SARS-CoV-2, RNA, NAAT NEGATIVE (NEGATIVE) 08/22/22 01:10 Impressions Chest X-Ray 08/21/22 22:06 SINGLE VIEW CHEST CLINICAL HISTORY: Atypical chest pain FINDINGS: An AP, portable, upright chest radiograph is compared to study dated 02/03/2015. Correlation is made with chest CT dated 09/09/2012. The heart is enlarged. The pulmonary vasculature is noncongested. There is bibasilar scarring/atelectasis. No airspace consolidation or large pleural effusion is identified. No pneumothorax is seen. The skeletal structures are osteopenic. The bony thorax is grossly intact. IMPRESSION: Cardiomegaly with no active disease in the chest. ACT 112: Negative or not required by law. Electronically signed by: Eran Swartz M.D. 08/22/2022 7:33 AM Abdomen/Pelvis CT 08/21/22 23:36 Exam(s): CT ABDOMEN + PELVIS With Contrast IV Amt: 87 ml optiray 320 EXAM: CT Abdomen and Pelvis With Intravenous Contrast CLINICAL HISTORY: Reason for exam: Left sided abd pain. TECHNIQUE: Axial computed tomography images of the abdomen and pelvis with intravenous contrast. Automated exposure control was utilized for the study. A dose lowering technique was utilized adhering to the principles of ALARA. CONTRAST: Patient received 87 ml optiray 320 of IV contrast COMPARISON: No relevant prior studies available. FINDINGS: Lung bases: Unremarkable. No mass. No consolidation. ABDOMEN: Liver: Unremarkable. No mass. Gallbladder and bile ducts: Unremarkable. No calcified stones. No ductal dilation. Pancreas: Unremarkable. No mass. No ductal dilation. Spleen: There are nodular implants throughout the abdomen which may reflect splenosis. The spleen is absent. Adrenals: Unremarkable. No mass. Kidneys and ureters: There is severe left-sided hydroureteronephrosis which appears chronic. There is significant associated renal cortical thinning. There is a large soft tissue mass in the region of the left proximal ureter which measures 8.3 x 6.8 x 13.7 cm (image 57 series 2 and image 36 series 300). Extensive left-sided cain-nephric stranding is noted. Stomach and bowel: Unremarkable. No obstruction. No mucosal thickening. PELVIS: Appendix: No findings to suggest acute appendicitis. Bladder: Unremarkable. No mass. Reproductive: Unremarkable as visualized. ABDOMEN and PELVIS: Intraperitoneal space: Unremarkable. No free air. No significant fluid collection. Bones/joints: There is extensive degenerative disease of the thoracolumbar spine. No acute fracture. No dislocation. Soft tissues: Unremarkable. Vasculature: Unremarkable. No abdominal aortic aneurysm. Lymph nodes: Unremarkable. No enlarged lymph nodes. IMPRESSION: 1. Severe left hydronephrosis which appears chronic and is related to a 13 cm mass which appears to encase and invade the ureter. Is unclear if this originates from the ureter or is a extra ureteral process and biopsy would be necessary to make that determination. 2. 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 Metastatic disease could not be excluded in this setting. Electronically signed by: Sunil Naylor MD 08/22/22 00:34 AM
--- NOTE | 2022-08-22 08:24 | Electrocardiogram Report ---
Test Reason : Blood Pressure : / mmHG Vent. Rate : 078 BPM Atrial Rate : 078 BPM P-R Int : 134 ms QRS Dur : 100 ms QT Int : 374 ms P-R-T Axes : 039 009 051 degrees QTc Int : 426 ms Normal sinus rhythm Normal ECG When compared with ECG of 05-FEB-2015 14:20, No significant change Confirmed by Nirav Mi ([id number]) on 08/22/2022 8:24:27 AM Referred By: REFERRED SELF Confirmed By:Nirav Mi
[2022-08-22] MEDS ORDERED: MoRPHine SULFATE 4 MG/ML 1 ML CARP\\VIAL IV PRN (08:50)
[2022-08-22] MEDS ORDERED: HYDROmorphone INJ 0.5 MG/0.5 ML SYR IV STA (08:50)
[2022-08-22] MEDS ORDERED: ACETAMINOPHEN 1,000 MG/100 ML VIAL IV STA (08:51)
[2022-08-22] MEDS ORDERED: OLMESARTAN MEDOXOMIL 20 MG TAB PO SCH (09:00)
[2022-08-22] MEDS ORDERED: ACETAMINOPHEN 500 MG TAB PO SCH (09:00)
[2022-08-22] MEDS ORDERED: HYDROmorphone INJ 0.5 MG/0.5 ML SYR IV PRN (09:05)
[2022-08-22 09:22] LABS: Hematocrit (blood only) 35.7 % (42.0-52.0); Hemoglobin 12.3 g/dl (14.0-18.0); Mean Corpuscular Hemoglobin 30.8 pg (25.0-34.0); Mean Corpuscular Hgb Conc 34.5 g/dL (32.0-36.0); Mean Corpuscular Volume 89.5 fL (80.0-100.0); Platelet Count 334 K/uL (130-400); RDW Coefficient of Variation 14.2 % (11.5-14.5); Red Blood Count 3.99 M/uL (4.70-6.10); White Blood Count 19.63 K/ul (4.8-10.8)
[2022-08-22 09:38] LABS: Calcium 9.2 mg/dl (8.6-10.3); Potassium 3.9 mmol/L (3.5-5.1)
[2022-08-22 09:43] LABS: INR 4.6 (0.9-1.1); Prothrombin Time 45.5 Seconds (9.0-12.0)
[2022-08-22 09:44] LABS: Creatinine Clr Calc Pharmacy 77.6 ml/min; Est GFR (African American) 85.2 ml/min; Est GFR (Non-African American) 73.5 ml/min
[2022-08-22] MEDS: amLODIPine BESYLATE 5 MG TAB PO SCH (10:35)
[2022-08-22] MEDS: LOSARTAN POTASSIUM 50 MG TAB PO SCH (10:35)
--- NOTE | 2022-08-22 10:59 | Urology Consultation ---
I have discussed Mr. Orozco's case with BRITNI Salazar and agree with the above documentation. Unclear etiology of his retroperitoneal mass. Would recommend percutaneous biopsy for tissue evaluation once INR is appropriate (<1.5 per IR). Flank pain may be related to hydronephrosis, would recommend pain control w/ tylenol, ibuprofen, narcotics if needed. Decompression of the kidney would likely be challenging with ureteral stent (extrinsic compression from the mass, may not be able to place stent at all) and I suspect he may be better served with nephrostomy tube drainage, however this would require transfer to another facility and would also require appropriate INR. To start with, would recommend pain control and biopsy for tissue sample of the mass. Date of Consultation August 22, 2022 Assessment & Plan (1) Hydronephrosis of left kidney: (2) Left flank pain: (3) Abdominal mass: (4) Prostate cancer: Plan 62yo/M with a hx of prostate ca s/p prostatectomy in [place] 2017 who presented with acute left sided pain and found to have severe left hydronephrosis which appears chronic and is related to a 13cm mass of unknown origin. Afebrile, hypertensive and tachycardic. Labs show a leukocytosis of 19, hemoglobin 12.3, creatinine 1.07. Supra therapeutic INR at 4.6. UA with 2+ blood, otherwise does not appear infected. Blood cultures pending. Voiding spontaneously without issue, continue to monitor. CT abd pelvis revealed severe left hydronephrosis which appears chronic and is related to a 13 cm mass which appears to encase and invade the ureter. Is unclear if this originates from the ureter or is a extra ureteral process and biopsy would be necessary to make that determination. Also small soft tissue nodules in the upper abdomen which could reflect splenosis as the patient appears to be status post splenectomy. Metastatic disease could not be excluded in this setting. Due to the unclear origin of the mass, would recommend tissue biopsy as this will help to determine next steps. Discussed with Malcolm GOTTI- Can perform biopsy when INR <1.5. Will consider while inpatient verses arranging as outpatient. Left ureteral stent placement would likely be difficult due to the mass. A left nephrostomy tube could be considered for decompression, but would require transfer to tertiary center for placement and INR would need to be in therapeutic range. Continue supportive care and pain management for now. Will also check PSA. Discussed plan with hospital team. Urology will follow. Case discussed with Dr. Reagan, on-call urologist. See attending note. Greater than 60 minutes spent on chart review, assessment, coordination of care, planning, and documentation. History of Present Illness Attending Physician: Trudi Godoy MD History of Present Illness 62-year-old male with past medical history significant history of hypertension, history of hypercoagulable state status post DVT and PE on anticoagulation with Coumadin who presented to the ED with complaints of left-sided abdominal pain. Patient reports that he started experiencing intermittent left-sided abdominal pain Saturday morning but progressively worsened over the day and prompted his arrival to the ED for further evaluation. He was afebrile and hemodynamically stable. ED work-up revealed a leukocytosis of 13, hemoglobin 13, normal renal function, supratherapeutic INR. Urinalysis with evidence of 2+ blood but no evidence of infection. CT abdomen pelvis - Severe left hydronephrosis which appears chronic and is related to a 13 cm mass which appears to encase and invade the ureter. Is unclear if this originates from the ureter or is a extra ureteral process and biopsy would be necessary to make that determination. 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 Metastatic disease could not be excluded in this setting. Patient was previously seen in our office by Dr. Noonan. Last seen in 2019 for evaluation of gross hematuria, possible passage of distal left ureteral stone. Hx of prostatectomy in 2017 in [place]. Last PSA from 08/2021 was <0.008. Patient examined at bedside this AM in the emergency room. Awake, resting in bed on arrival. No acute distress. He reports the left sided pain started on Saturday and progressively worsened. Pain has improved some with IV pain meds. He denies fevers, chills, nausea, vomiting. Voiding without issue. Denies hematuria or dysuria. Has not seen a urologist since last visit in our office in 2019. Last PSA 09/12/21 was <0.008. Allergies Allergy/AdvReac Type Severity Reaction Status Date / Time No Known Drug Allergies Allergy Verified 07/18/22 08:35 Home Medications Medication Instructions Recorded Confirmed Type rizatriptan 10 mg disintegrating 10 mg PO Q2H PRN migraine headache 10/29/18 08/22/22 Rx tablet #18 tabs warfarin 1 mg tablet See Rx Instructions .Route 11/21/21 08/22/22 Rx .COMPLEX #90 tabs warfarin 5 mg tablet See Rx Instructions .Route 11/21/21 08/22/22 Rx .COMPLEX #90 tabs amlodipine 5 mg tablet 5 mg PO QAM #90 tabs 05/03/22 08/22/22 Rx warfarin 2 mg tablet See Rx Instructions .Route 05/03/22 08/22/22 Rx .COMPLEX #135 tabs olmesartan 20 mg tablet 20 mg PO DAILY #30 tabs 06/06/22 08/22/22 Rx Patient History Medical History DVT (deep venous thrombosis) (~2011) History of COVID-19 History of prostate cancer History of pulmonary embolism (~2011) Hx of melanoma of skin Hydronephrosis Hypertension Migraine headache On anticoagulant therapy Primary hypercoagulable state Recurrent deep vein thrombosis (DVT) of both lower extremities Renal colic Sleep apnea Squamous cell carcinoma, face Surgical History H/O prostatectomy (~2014) H/O radical excision of skin lesion History of colonoscopy History of hernia repair History of left cataract extraction Hx of right cataract extraction Hx of splenectomy S/P IVC filter Status post Mohs surgery Family History Mother Cervical cancer Uterine cancer Sister Uterine cancer Father Diabetes Other No family history of adverse response to anesthesia Denies family history of Ovarian cancer Prostate cancer Breast cancer Lung cancer Colorectal cancer Social History Smoking Status: Never smoker Second Hand Exposure: No; Do You Dip or Chew Tobacco: No; Hx Alcohol Use: No Hx Substance Use: No Preferred Language: Czech Communication Ability: Effective Visual Impairment: No Limitations Hearing Ability: Normal Condenser Tester Required: No Beliefs That Will Affect Care: None marital status: Current Living Situation: Alone current occupational status: employed Other Information That Helps Us Care for You: No Feels Safe at Home: Yes Safety Concerns: Feels Safe At This Time Childhood Exposure to Second-Hand Smoke: Yes Diet: regular caffeine: Yes Dental Care, Regularly: Yes Physical Activity Frequency: 5-6 Times per Week Seatbelt Use: sometimes Sunscreen Use: Yes Do you think of yourself as: straight/heterosexual Assistive Devices: Glasses Review of Systems Review of Systems: All systems reviewed & are unremarkable except as noted in HPI & below Physical Exam Constitutional: no acute distress Eyes: PERRL, conjunctivae normal, anicteric sclerae ENMT: external ear and nose normal, oropharynx normal Neck: normal visual inspection Respiratory: no respiratory distress and no labored breathing Musculoskeletal: Head/Neck/Chest: normocephalic Skin: No visible rashes or lesions to exposed skin areas Neurologic: moves all extremities and awake Psychiatric: A+Ox3, euthymic affect Results & Data Vital Signs (Past 12 Hours) Vital Signs Pulse Resp BP Pulse Ox O2 Del Method O2 Flow Rate 08/22/22 09:30 98 H 21 97 Nasal Cannula 4 08/22/22 09:00 92 H 23 08/22/22 08:00 24 08/22/22 08:00 175/108 H 08/22/22 07:30 24 08/22/22 09:15 80 L Room Air 08/22/22 06:55 84 08/22/22 05:44 96 H 08/22/22 03:00 81 23 176/95 H 08/22/22 02:30 85 21 08/22/22 01:30 81 22 08/22/22 00:16 93 H 12 195/110 H PG Care Time/CCT Total # of Minutes Spent Total Time Spent with Patient: Total time spent is greater than 50% in coordination of care (as documented) at patient's floor/unit and/or counseling patient: Coding Level of Care Code 72344 IN/OBS CONSULT LVL 4,60M Diagnoses Hydronephrosis of left kidney N13.30 Left flank pain R10.9 Abdominal mass R19.00 Prostate cancer C61
[2022-08-22] MEDS ORDERED: PHYTONADIONE 5 MG TAB PO STA ×2 (14:19→19:38)
[2022-08-22] MEDS ORDERED: ONDANSETRON INJ 2 MG/ML 2 ML VIAL IV STA (15:27)
[2022-08-22] MEDS: HYDROmorphone INJ 0.5 MG/0.5 ML SYR IV PRN ×2 (15:40→20:05)
[2022-08-22] MEDS: LACTATED RINGER'S 1,000 ML IV SCH (16:01)
[2022-08-22] MEDS: ACETAMINOPHEN 500 MG TAB PO SCH ×2 (16:01→20:10)
[2022-08-22 18:51] LABS: INR 4.7 (0.9-1.1); Prothrombin Time 47.1 Seconds (9.0-12.0)
[2022-08-22] MEDS ORDERED: ONDANSETRON INJ 2 MG/ML 2 ML VIAL IV PRN (21:00)
[2022-08-23] MEDS: LACTATED RINGER'S 1,000 ML IV SCH (00:04)
[2022-08-23] MEDS: HYDROmorphone INJ 0.5 MG/0.5 ML SYR IV PRN ×6 (00:23→21:05)
[2022-08-23 07:23] LABS: Hemoglobin 11.1 g/dl (14.0-18.0); Mean Corpuscular Hemoglobin 30.6 pg (25.0-34.0); Mean Corpuscular Hgb Conc 33.6 g/dL (32.0-36.0); Mean Corpuscular Volume 90.9 fL (80.0-100.0); Mean Platelet Volume 9.8 fL (9.4-12.4); Platelet Count 351 K/uL (130-400); RDW Coefficient of Variation 14.3 % (11.5-14.5); RDW Standard Deviation 47.8 fL (36.4-46.3); Red Blood Count 3.63 M/uL (4.70-6.10); White Blood Count 26.48 K/ul (4.8-10.8)
--- NOTE | 2022-08-23 07:40 | Hospitalist Progress Note ---
Date of Service August 23, 2022 Assessment & Plan (1) Abdominal mass: (2) Hydronephrosis of left kidney: Plan Mr. Orozco is a 62 y/o M with PMHX of recurrent DVTs with PE on Coumadin (INR 5.2) s/p IVC filter, prostate cancer s/p prostatectomy 2014, non-metastatic melanoma 2019, and HTN who presented with L-sided abd pain for 1 day #Left abdominal mass #Hydronephrosis L kidney Given his worsening white count and poorly controlled pain, will work on transfer to [facility] for potential drainage and tissue biopsy Started ceftriaxone 2g CT abd/pelvis: 13cm mass, L-sided severe hydronephrosis, partially encased L- ureter, renal cortical thinning, extensive L-sided perinephric stranding INR goal < 1.5 for biopsy, down to 2.1 after vitamin K PSA 0.139 Dilaudid 0.75 mg IV q4hr PRN PRN Tylenol Zofran 4mg IV q6hr PRN #prostate cancer s/p prostatectomy in 2014 PSA 0.139 on 08/21/22 Performed at [facility] #HTN Up to 180s/100s Amlodipine 5mg po qam Losartan 50mg po daily #Recurrent DVTs IVC filter Holding Coumadin in anticipation of renal mass biopsy FENGI: heart healthy, carb consistent dinner tonight then NPO at midnight. LR fluids at 125 DVT ppx: holding Coumadin in anticipation of renal mass biopsy Full code Admission and Anticipated Discharge Date Admission Date: August 22, 2022 Supervising Physician Co-Signing Physician Notes Medical Student Supervision Note: I was personally present during medical student patient encounter and independently interviewed and examined the patient and verified the medina history and physical, reviewed labs and image studies, discussed the case with Rakesh Martinez and agree with the findings and care plan. left flank pain with CT finding of abdominal mass with rising wbc count - urology evaluation done - recommends transfer to tertiary care. Continue IV abx. Cultures pending. s/p Vitamin K. Warfarin on hold. INR 2.1 at 11am today Subjective Mr. Orozco was able to eat some dinner last night which he tolerated without nausea or vomiting. After eating he did note some improvement with his dry heaving. No bowel movement. His analgesia controls his pain for ~3.5 hours but then returns to severe. The pain prevents him from taking deep breaths. No SOB, no sputum production. The muscle cramps in his legs have improved since yesterday. No subjective fevers, chills. I spoke with his son Irwin Orozco at the bedside ([phone]) and answered questions he had regarding Chong's condition. Review of Systems Review of Systems: All systems reviewed & are unremarkable except as noted in HPI & below Physical Exam Physical Exam: Lying supine in hospital bed Lying still Respiratory: decreased inspiratory effort, no conversational dyspnea, no rales/rhonchi/wheeze BL Cardiovascular: tachycardia, normal S1/S2, no M/R/G, no LE edema BL Gastrointestinal (Abdomen): +abdominal distention, active bowel sounds, deferred palpation due to pain Lymphatic: no calf pain to palpation, Katherine's sign negative BL Results & Data Results & Data Vital Signs (Past 12 Hours) Vital Signs Temp Pulse Pulse Resp BP Pulse Ox O2 Del Method 08/23/22 07:01 106 H 08/23/22 04:00 36.6 C 104 H 20 156/79 H 93 Nasal Cannula 08/23/22 00:00 36.6 C 92 H 20 139/77 92 Nasal Cannula 08/22/22 23:38 96 H 08/22/22 22:10 Nasal Cannula 08/22/22 19:53 36.8 C 91 H 20 127/78 95 Nasal Cannula O2 Flow Rate 08/23/22 07:01 08/23/22 04:00 4 08/23/22 00:00 4 08/22/22 23:38 08/22/22 22:10 4 08/22/22 19:53 4 Laboratory Results 08/23/22 08/23/22 08/23/22 07:03 07:03 07:03 WBC 26.48 H RBC 3.63 L Hgb 11.1 L Hct 33.0 L MCV 90.9 MCH 30.6 MCHC 33.6 RDW Std Deviation 47.8 H RDW Coeff of Ángel 14.3 Plt Count 351 MPV 9.8 PT 28.0 H INR 2.7 H Sodium 136 Potassium 4.6 Chloride 103 Carbon Dioxide 28 Anion Gap 5 BUN 21 Creatinine 1.21 Est Cr Clr Drug Dosing 74.3 Est GFR ( Amer) 73.4 Est GFR (Non-Af Amer) 63.3 BUN/Creatinine Ratio 17.4 Glucose 127 H Calcium 9.2 Prostate Specific Ag 08/22/22 08/21/22 17:43 22:15 WBC RBC Hgb Hct MCV MCH MCHC RDW Std Deviation RDW Coeff of Ángel Plt Count MPV PT 47.1 H INR 4.7 H Sodium Potassium Chloride Carbon Dioxide Anion Gap BUN Creatinine Est Cr Clr Drug Dosing Est GFR ( Amer) Est GFR (Non-Af Amer) BUN/Creatinine Ratio Glucose Calcium Prostate Specific Ag 0.139 Diagnostic Findings Laboratory Results WBC 26.48 K/ul (4.8-10.8) H 08/23/22 07:03 RBC 3.63 M/uL (4.70-6.10) L 08/23/22 07:03 Hgb 11.1 g/dl (14.0-18.0) L 08/23/22 07:03 Hct 33.0 % (42.0-52.0) L 08/23/22 07:03 MCV 90.9 fL (80.0-100.0) 08/23/22 07:03 MCH 30.6 pg (25.0-34.0) 08/23/22 07:03 MCHC 33.6 g/dL (32.0-36.0) 08/23/22 07:03 RDW Std Deviation 47.8 fL (36.4-46.3) H 08/23/22 07:03 RDW Coeff of Ángel 14.3 % (11.5-14.5) 08/23/22 07:03 Plt Count 351 K/uL (130-400) 08/23/22 07:03 MPV 9.8 fL (9.4-12.4) 08/23/22 07:03 Immature Gran % (Auto) 0.2 % 08/21/22 22:08 Neut % (Auto) 81.0 % 08/21/22 22:08 Lymph % (Auto) 9.9 % 08/21/22 22:08 [place] % (Auto) 8.1 % 08/21/22 22:08 Eos % (Auto) 0.1 % 08/21/22 22:08 Baso % (Auto) 0.7 % 08/21/22 22:08 Neut # (Auto) 10.75 K/uL (1.40-6.50) H 08/21/22 22:08 Lymph # (Auto) 1.32 K/uL (1.2-3.4) 08/21/22 22:08 [place] # (Auto) 1.07 K/uL (0.11-0.59) H 08/21/22 22:08 Eos # (Auto) 0.01 K/uL (0-0.50) 08/21/22 22:08 Baso # (Auto) 0.09 K/uL (0-0.2) 08/21/22 22:08 Immature Gran # (Auto) 0.03 K/uL (0.01-0.20) 08/21/22 22:08 PT 21.5 Seconds (9.0-12.0) H 08/23/22 11:49 INR 2.1 (0.9-1.1) H 08/23/22 11:49 APTT 47.9 Seconds (21.0-31.0) H* 08/21/22 22:08 PTT Ratio 1.7 08/21/22 22:08 Sodium 136 mmol/L (136-145) 08/23/22 07:03 Potassium 4.6 mmol/L (3.5-5.1) 08/23/22 07:03 Chloride 103 mmol/L (98-107) 08/23/22 07:03 Carbon Dioxide 28 mmol/L (21-32) 08/23/22 07:03 Anion Gap 5 (3-11) 08/23/22 07:03 BUN 21 mg/dl (6-23) 08/23/22 07:03 Creatinine 1.21 mg/dl (0.6-1.4) 08/23/22 07:03 Est Cr Clr Drug Dosing 74.3 ml/min 08/23/22 07:03 Est GFR ( Amer) 73.4 ml/min 08/23/22 07:03 Est GFR (Non-Af Amer) 63.3 ml/min 08/23/22 07:03 BUN/Creatinine Ratio 17.4 (10-20) 08/23/22 07:03 Glucose 127 mg/dl (70-99(Fasting)) H 08/23/22 07:03 Calcium 9.2 mg/dl (8.6-10.3) 08/23/22 07:03 Total Bilirubin 0.7 mg/dl (0.2-1.0) 08/21/22 22:08 AST 19 U/L (13-39) 08/21/22 22:08 ALT 13 U/L (7-52) 08/21/22 22:08 Alkaline Phosphatase 86 U/L (34-104) 08/21/22 22:08 Troponin I High Sens 14.4 pg/ml (0-20) 08/21/22 22:08 Total Protein 8.0 gm/dl (6.0-8.3) 08/21/22 22:08 Albumin 4.2 gm/dl (3.4-5.0) 08/21/22 22:08 Globulin 3.8 gm/dl (2.5-4.0) 08/21/22 22:08 Albumin/Globulin Ratio 1.1 (0.9-2) 08/21/22 22:08 Prostate Specific Ag 0.139 ng/ml (0-4) 08/21/22 22:15 Urine Color Yellow 08/22/22 00:50 Urine Appearance Clear (Clear) 08/22/22 00:50 Urine pH 7.5 (4.5-7.5) 08/22/22 00:50 Ur Specific [place] 1.022 (1.000-1.030) 08/22/22 00:50 Urine Protein Negative (Negative) 08/22/22 00:50 Urine Glucose (UA) Negative (Negative) 08/22/22 00:50 Urine Ketones Trace (Negative) H 08/22/22 00:50 Urine Blood 2+ (Negative) H 08/22/22 00:50 Urine Nitrite Negative (Negative) 08/22/22 00:50 Urine Bilirubin Negative (Negative) 08/22/22 00:50 Urine Urobilinogen Negative (Negative) 08/22/22 00:50 Ur Leukocyte Esterase Negative (Negative) 08/22/22 00:50 Urine WBC (Auto) 0 /hpf (0-5) 08/22/22 00:50 Urine RBC (Auto) 10-30 /hpf (0-4) H 08/22/22 00:50 U Hyaline Cast (Auto) 0 /lpf (0-5) 08/22/22 00:50 U Epithel Cells (Auto) 0-5 /lpf (0-5) 08/22/22 00:50 Urine Bacteria (Auto) Negative (Negative) 08/22/22 00:50 SARS-CoV-2, RNA, NAAT NEGATIVE (NEGATIVE) 08/22/22 01:10 Impressions Chest X-Ray 08/21/22 22:06 SINGLE VIEW CHEST CLINICAL HISTORY: Atypical chest pain FINDINGS: An AP, portable, upright chest radiograph is compared to study dated 02/03/2015. Correlation is made with chest CT dated 09/09/2012. The heart is enlarged. The pulmonary vasculature is noncongested. There is bibasilar scarring/atelectasis. No airspace consolidation or large pleural effusion is i dentified. No pneumothorax is seen. The skeletal structures are osteopenic. The bony thorax is grossly intact. IMPRESSION: Cardiomegaly with no active disease in the chest. ACT 112: Negative or not required by law. Electronically signed by: Eran Swartz M.D. 08/22/2022 7:33 AM Abdomen/Pelvis CT 08/21/22 23:36 Exam(s): CT ABDOMEN + PELVIS With Contrast IV Amt: 87 ml optiray 320 EXAM: CT Abdomen and Pelvis With Intravenous Contrast CLINICAL HISTORY: Reason for exam: Left sided abd pain. TECHNIQUE: Axial computed tomography images of the abdomen and pelvis with intravenous contrast. Automated exposure control was utilized for the study. A dose lowering technique was utilized adhering to the principles of ALARA. CONTRAST: Patient received 87 ml optiray 320 of IV contrast COMPARISON: No relevant prior studies available. FINDINGS: Lung bases: Unremarkable. No mass. No consolidation. ABDOMEN: Liver: Unremarkable. No mass. Gallbladder and bile ducts: Unremarkable. No calcified stones. No ductal dilation. Pancreas: Unremarkable. No mass. No ductal dilation. Spleen: There are nodular implants throughout the abdomen which may reflect splenosis. The spleen is absent. Adrenals: Unremarkable. No mass. Kidneys and ureters: There is severe left-sided hydroureteronephrosis which appears chronic. There is significant associated renal cortical thinning. There is a large soft tissue mass in the region of the left proximal ureter which measures 8.3 x 6.8 x 13.7 cm (image 57 series 2 and image 36 series 300). Extensive left-sided cain-nephric stranding is noted. Stomach and bowel: Unremarkable. No obstruction. No mucosal thickening. PELVIS: Appendix: No findings to suggest acute appendicitis. Bladder: Unremarkable. No mass. Reproductive: Unremarkable as visualized. ABDOMEN and PELVIS: Intraperitoneal space: Unremarkable. No free air. No significant fluid collection. Bones/joints: There is extensive degenerative disease of the thoracolumbar spine. No acute fracture. No dislocation. Soft tissues: Unremarkable. Vasculature: Unremarkable. No abdominal aortic aneurysm. Lymph nodes: Unremarkable. No enlarged lymph nodes. IMPRESSION: 1. Severe left hydronephrosis which appears chronic and is related to a 13 cm mass which appears to encase and invade the ureter. Is unclear if this originates from the ureter or is a extra ureteral process and biopsy would be necessary to make that determination. 2. 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 Metastatic disease could not be excluded in this setting. Electronically signed by: Sunil Naylor MD 08/22/22 00:34 AM
[2022-08-23 07:46] LABS: INR 2.7 (0.9-1.1)
[2022-08-23 07:49] LABS: BUN Creatinine Ratio 17.4 (10-20); Calcium 9.2 mg/dl (8.6-10.3); Creatinine Clr Calc Pharmacy 74.3 ml/min; Est GFR (African American) 73.4 ml/min; Est GFR (Non-African American) 63.3 ml/min; Potassium 4.6 mmol/L (3.5-5.1)
[2022-08-23] MEDS: amLODIPine BESYLATE 5 MG TAB PO SCH (08:14)
[2022-08-23] MEDS: LOSARTAN POTASSIUM 50 MG TAB PO SCH (08:14)
[2022-08-23] MEDS: ACETAMINOPHEN 500 MG TAB PO SCH ×3 (08:22→21:05)
[2022-08-23] MEDS ORDERED: PANTOprazole 40 MG in SYRINGE 0 ML IV SCH (11:00)
[2022-08-23] MEDS ORDERED: cefTRIAXone SODIUM 2,000 MG in DEXTROSE 5% 50 ML IV SCH (11:15)
[2022-08-23 12:47] LABS: INR 2.1 (0.9-1.1); Prothrombin Time 21.5 Seconds (9.0-12.0)
--- NOTE | 2022-08-23 14:45 | Urology Progress Note ---
Date of Service August 23, 2022 Assessment & Plan (1) Hydronephrosis of left kidney: (2) Left flank pain: (3) Abdominal mass: (4) Prostate cancer: Plan 62yo/M with a hx of prostate ca s/p prostatectomy in 2016 who presented with acute left sided pain and found to have severe left hydronephrosis which appears chronic and is related to a 13cm mass of unknown origin. Continues to have severe left-sided flank pain. Afebrile, hypertensive and tachycardic. Labs show leukocytosis up from 19-26 today, hemoglobin 11.1, creatinine 1.21. INR at 2.1. PSA 0.139. UA with 2+ blood, otherwise does not appear infected. No urine culture pending. Blood cultures prelim no growth x 24 hours. Started on IV Ceftriaxone. Voiding spontaneously without issue, continue to monitor. CT abd pelvis revealed severe left hydronephrosis which appears chronic and is related to a 13 cm mass which appears to encase and invade the ureter. Is unclear if this originates from the ureter or is a extra ureteral process and biopsy would be necessary to make that determination. Also small soft tissue nodules in the upper abdomen which could reflect splenosis as the patient appears to be status post splenectomy. Metastatic disease could not be excluded in this setting. Unclear etiology of his retroperitoneal mass. Would recommend percutaneous biopsy for tissue evaluation once INR is appropriate (<1.5 per IR). He continues to have poorly controlled pain and a worsening white count. Flank pain may be related to the hydronephrosis, however, a left ureteral stent placement would likely be challenging given the compression from the mass. Given this, our recommendation would be to transfer to a tertiary center for potential drainage and tissue biopsy. Discussed plan with hospital team. Continue supportive care and pain management for now. Case discussed with Dr. Guillaume, on-call urologist. See attending note. Admission and Anticipated Discharge Date Admission Date: August 22, 2022 Supervising Physician Co-Signing Physician Notes Discussed patient with [facility]. Agree with plan. Reviewed patients chart, vitals, labs and imaging. Concern with a rising WBC, worsening pain and tachycardia that he has an infection in his obstructed kidney. I believe placing a ureteral stent would have a high rate of failure. Our IR team is willing to perform a biopsy but is unable to place a nephrostomy tube/perc drain, so recommend transfer to tertiary care center so both can be accomplished. This was communicated directly to primary team. Subjective Patient examined at bedside this AM. Awake, resting in bed on arrival. Still with severe left flank/back pain. Pain medication works for about 3 hours, then the pain is severe again. Denies fevers, chills, nausea, vomiting. Voiding without issue. Denies hematuria or dysuria. Review of Systems Constitutional: as per Subjective / HPI Gastrointestinal: as per Subjective / HPI Genitourinary: + as per Subjective / HPI Physical Exam Constitutional: + uncomfortable Respiratory: no respiratory distress and no labored breathing Gastrointestinal (Abdomen): Percussion/Palpation: + abdomen tender (Left flank) Musculoskeletal: Head/Neck/Chest: normocephalic Skin: No visible rashes or lesions to exposed skin areas Neurologic: awake Psychiatric: A+Ox3, euthymic affect Results & Data Vital Signs (Past 12 Hours) Vital Signs Temp Pulse Pulse Resp BP Pulse Ox O2 Del Method 08/23/22 07:54 36.7 C 109 H 18 182/100 H 90 Nasal Cannula 08/23/22 07:01 106 H 08/23/22 04:00 36.6 C 104 H 20 156/79 H 93 Nasal Cannula 08/23/22 00:00 36.6 C 92 H 20 139/77 92 Nasal Cannula 08/22/22 23:38 96 H 08/22/22 22:10 Nasal Cannula O2 Flow Rate 08/23/22 07:54 4 08/23/22 07:01 08/23/22 04:00 4 08/23/22 00:00 4 08/22/22 23:38 08/22/22 22:10 4 PG Care Time/CCT Total # of Minutes Spent Total Time Spent with Patient: Total time spent is greater than 50% in coordination of care (as documented) at patient's floor/unit and/or counseling patient: Coding Level of Care Code 05393 SUB INP/OBS CARE 2/35MIN Diagnoses Hydronephrosis of left kidney N13.30 Left flank pain R10.9 Abdominal mass R19.00 Prostate cancer C61
--- NOTE | 2022-08-23 16:11 | Discharge Summary ---
Date of Service August 24, 2022 Admission HPI Per Admitting Provider This is a 62-year-old male with past medical history significant history of hypertension, history of hypercoagulable state status post DVT and PE on anticoagulation with Coumadin who presents to the emergency department with complaints of left-sided abdominal pain. Patient reports that he started experiencing intermittent left-sided abdominal pain since the morning but this is progressively worsened over the day and hence patient presents to ED for further evaluation. Patient reports her pain had worsened to a point where he had experienced lightheadedness while he was in the shower but did not have a syncopal episode and and no head trauma reported. Patient however presents to ED due to worsening pain. Patient otherwise denies any chest pain or any other new vomiting symptoms but reports some intermittent nausea. Patient was evaluated in the ED and was found to have elevated INR consistent with with him being on warfarin therapy. CT of the abdomen was obtained that shows a large mass causing left-sided hydronephrosis and partially encasing the left-sided ureter measuring approximately 13 cm in width. Urologist Dr. Munguia contacted by ED and based on his recommendation patient being admitted for further advanced imaging with plans for potential biopsy in a.m. Admission Exam (Per Admitting) Constitutional Head and ENT no thyroid enlargement trachea midline Cardiovascular S1-S2 are normal no S3 Lungs bilateral air entry fair no wheezing Abdomen soft mild distention no rebound tenderness Extremity shows trace edema Neurologically no focal deficits Skin shows no rash no cyanosis Specialty Data Hospitalist Laboratory Results WBC 26.48 K/ul (4.8-10.8) H 08/23/22 07:03 RBC 3.63 M/uL (4.70-6.10) L 08/23/22 07:03 Hgb 11.1 g/dl (14.0-18.0) L 08/23/22 07:03 Hct 33.0 % (42.0-52.0) L 08/23/22 07:03 MCV 90.9 fL (80.0-100.0) 08/23/22 07:03 MCH 30.6 pg (25.0-34.0) 08/23/22 07:03 MCHC 33.6 g/dL (32.0-36.0) 08/23/22 07:03 RDW Std Deviation 47.8 fL (36.4-46.3) H 08/23/22 07:03 RDW Coeff of Ángel 14.3 % (11.5-14.5) 08/23/22 07:03 Plt Count 351 K/uL (130-400) 08/23/22 07:03 MPV 9.8 fL (9.4-12.4) 08/23/22 07:03 Immature Gran % (Auto) 0.2 % 08/21/22 22:08 Neut % (Auto) 81.0 % 08/21/22 22:08 Lymph % (Auto) 9.9 % 08/21/22 22:08 [place] % (Auto) 8.1 % 08/21/22 22:08 Eos % (Auto) 0.1 % 08/21/22 22:08 Baso % (Auto) 0.7 % 08/21/22 22:08 Neut # (Auto) 10.75 K/uL (1.40-6.50) H 08/21/22 22:08 Lymph # (Auto) 1.32 K/uL (1.2-3.4) 08/21/22 22:08 [place] # (Auto) 1.07 K/uL (0.11-0.59) H 08/21/22 22:08 Eos # (Auto) 0.01 K/uL (0-0.50) 08/21/22 22:08 Baso # (Auto) 0.09 K/uL (0-0.2) 08/21/22 22:08 Immature Gran # (Auto) 0.03 K/uL (0.01-0.20) 08/21/22 22:08 PT 21.5 Seconds (9.0-12.0) H 08/23/22 11:49 INR 2.1 (0.9-1.1) H 08/23/22 11:49 APTT 47.9 Seconds (21.0-31.0) H* 08/21/22 22:08 PTT Ratio 1.7 08/21/22 22:08 Sodium 136 mmol/L (136-145) 08/23/22 07:03 Potassium 4.6 mmol/L (3.5-5.1) 08/23/22 07:03 Chloride 103 mmol/L (98-107) 08/23/22 07:03 Carbon Dioxide 28 mmol/L (21-32) 08/23/22 07:03 Anion Gap 5 (3-11) 08/23/22 07:03 BUN 21 mg/dl (6-23) 08/23/22 07:03 Creatinine 1.21 mg/dl (0.6-1.4) 08/23/22 07:03 Est Cr Clr Drug Dosing 74.3 ml/min 08/23/22 07:03 Est GFR ( Amer) 73.4 ml/min 08/23/22 07:03 Est GFR (Non-Af Amer) 63.3 ml/min 08/23/22 07:03 BUN/Creatinine Ratio 17.4 (10-20) 08/23/22 07:03 Glucose 127 mg/dl (70-99(Fasting)) H 08/23/22 07:03 Calcium 9.2 mg/dl (8.6-10.3) 08/23/22 07:03 Total Bilirubin 0.7 mg/dl (0.2-1.0) 08/21/22 22:08 AST 19 U/L (13-39) 08/21/22 22:08 ALT 13 U/L (7-52) 08/21/22 22:08 Alkaline Phosphatase 86 U/L (34-104) 08/21/22 22:08 Troponin I High Sens 14.4 pg/ml (0-20) 08/21/22 22:08 Total Protein 8.0 gm/dl (6.0-8.3) 08/21/22 22:08 Albumin 4.2 gm/dl (3.4-5.0) 08/21/22 22:08 Globulin 3.8 gm/dl (2.5-4.0) 08/21/22 22:08 Albumin/Globulin Ratio 1.1 (0.9-2) 08/21/22 22:08 Prostate Specific Ag 0.139 ng/ml (0-4) 08/21/22 22:15 Urine Color Yellow 08/22/22 00:50 Urine Appearance Clear (Clear) 08/22/22 00:50 Urine pH 7.5 (4.5-7.5) 08/22/22 00:50 Ur Specific Elmer 1.022 (1.000-1.030) 08/22/22 00:50 Urine Protein Negative (Negative) 08/22/22 00:50 Urine Glucose (UA) Negative (Negative) 08/22/22 00:50 Urine Ketones Trace (Negative) H 08/22/22 00:50 Urine Blood 2+ (Negative) H 08/22/22 00:50 Urine Nitrite Negative (Negative) 08/22/22 00:50 Urine Bilirubin Negative (Negative) 08/22/22 00:50 Urine Urobilinogen Negative (Negative) 08/22/22 00:50 Ur Leukocyte Esterase Negative (Negative) 08/22/22 00:50 Urine WBC (Auto) 0 /hpf (0-5) 08/22/22 00:50 Urine RBC (Auto) 10-30 /hpf (0-4) H 08/22/22 00:50 U Hyaline Cast (Auto) 0 /lpf (0-5) 08/22/22 00:50 U Epithel Cells (Auto) 0-5 /lpf (0-5) 08/22/22 00:50 Urine Bacteria (Auto) Negative (Negative) 08/22/22 00:50 SARS-CoV-2, RNA, NAAT NEGATIVE (NEGATIVE) 08/22/22 01:10 Impressions Chest X-Ray 08/21/22 22:06 SINGLE VIEW CHEST CLINICAL HISTORY: Atypical chest pain FINDINGS: An AP, portable, upright chest radiograph is compared to study dated 02/03/2015. Correlation is made with chest CT dated 09/09/2012. The heart is enlarged. The pulmonary vasculature is noncongested. There is bibasilar scarring/atelectasis. No airspace consolidation or large pleural effusion is identified. No pneumothorax is seen. The skeletal structures are osteopenic. The bony thorax is grossly intact. IMPRESSION: Cardiomegaly with no active disease in the chest. ACT 112: Negative or not required by law. Electronically signed by: Eran Swartz M.D. 08/22/2022 7:33 AM Abdomen/Pelvis CT 08/21/22 23:36 Exam(s): CT ABDOMEN + PELVIS With Contrast IV Amt: 87 ml optiray 320 EXAM: CT Abdomen and Pelvis With Intravenous Contrast CLINICAL HISTORY: Reason for exam: Left sided abd pain. TECHNIQUE: Axial computed tomography images of the abdomen and pelvis with intravenous contrast. Automated exposure control was utilized for the study. A dose lowering technique was utilized adhering to the principles of ALARA. CONTRAST: Patient received 87 ml optiray 320 of IV contrast COMPARISON: No relevant prior studies available. FINDINGS: Lung bases: Unremarkable. No mass. No consolidation. ABDOMEN: Liver: Unremarkable. No mass. Gallbladder and bile ducts: Unremarkable. No calcified stones. No ductal dilation. Pancreas: Unremarkable. No mass. No ductal dilation. Spleen: There are nodular implants throughout the abdomen which may reflect splenosis. The spleen is absent. Adrenals: Unremarkable. No mass. Kidneys and ureters: There is severe left-sided hydroureteronephrosis which appears chronic. There is significant associated renal cortical thinning. There is a large soft tissue mass in the region of the left proximal ureter which measures 8.3 x 6.8 x 13.7 cm (image 57 series 2 and image 36 series 300). Extensive left-sided cain-nephric stranding is noted. Stomach and bowel: Unremarkable. No obstruction. No mucosal thickening. PELVIS: Appendix: No findings to suggest acute appendicitis. Bladder: Unremarkable. No mass. Reproductive: Unremarkable as visualized. ABDOMEN and PELVIS: Intraperitoneal space: Unremarkable. No free air. No significant fluid collection. Bones/joints: There is extensive degenerative disease of the thoracolumbar spine. No acute fracture. No dislocation. Soft tissues: Unremarkable. Vasculature: Unremarkable. No abdominal aortic aneurysm. Lymph nodes: Unremarkable. No enlarged lymph nodes. IMPRESSION: 1. Severe left hydronephrosis which appears chronic and is related to a 13 cm mass which appears to encase and invade the ureter. Is unclear if this originates from the ureter or is a extra ureteral process and biopsy would be necessary to make that determination. 2. 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 Metastatic disease could not be excluded in this setting. 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 Orozco is a 62 y/o M with PMHX of recurrent DVTs with PE on Coumadin (INR 5.2) s/p IVC filter, prostate cancer s/p prostatectomy 2014, non-metastatic melany anoma 2019, and HTN who presented with L-sided abd pain for 1 day #Left abdominal mass #Hydronephrosis L kidney Patient presented with acute abdominal pain, CT abd/pelvis revealed 13cm mass obstructing L ureter, causing severe hydronephrosis Given his worsening white count and suspicion of infection, it was determined he should be transferred to a tertiary care center for a potential nephrostomy tube, decompression and biopsy of mass Started ceftriaxone 2g in house again due to concern of infection Dilaudid 0.5 mg IV q4hr PRN for severe pain, Dilaudid 0.25 mg IV q4hr for moderate pain Scheduled Tylenol 1,000mg PO TID Zofran 4mg IV q6hr PRN #supratherapeutic INR INR was 5.2 on admission Given 5mg total of vitamin K in anticipation of biopsy, INR down to 2.1 #prostate cancer s/p prostatectomy in 2014 PSA 0.139 on 08/21/22 Prostatectomy at [facility] #HTN Up to 180s/100s Amlodipine 5mg po qam Losartan 50mg po daily #Recurrent DVTs/antiphospholipid syndrome IVC filter Holding Coumadin in anticipation of renal mass biopsy FENGI: heart healthy, carb consistent dinner tonight then NPO at midnight. LR fluids at 125 DVT ppx: holding Coumadin in anticipation of renal mass biopsy Dispo: transfer to tertiary [facility] Full code Supervising Physician Co-Signing Physician Notes Medical Student Supervision Note: I was personally present during medical student patient encounter and independently interviewed and examined the patient and verified the medina history and physical, reviewed labs and image studies, discussed the case with Rakesh Martinez and agree with the findings and care plan. left flank pain with CT finding of abdominal mass with rising wbc count - urology evaluation done - recommends transfer to tertiary care. Accepted at [facility]. Continue IV abx. Cultures pending. s/p Vitamin K. Warfarin on hold. INR 2.1 at 11am of day of transfer discharge.
[2022-08-24] MEDS: HYDROmorphone INJ 0.5 MG/0.5 ML SYR IV PRN (01:09)
--- NOTE | 2022-08-30 06:34 | Coding Query ---
CODING QUERY To promote full compliance with coding requirements relating to patient care, provider participation is requested in all cases of access specialist uncertainty. Please assist us with the question(s) below: Coding Question(s): Patient was noted to have a left sided abdmoninal mass. CT noted that malignancy cannot be excluded. Can the mass be further specified? Physician's Response(s): Urothelial cancer Thank you Juana MATTHEWS
== END 2022-08-24 01:51 | disposition short-term general hospital (02) | DRG 844 ==
LOC: ED 21:58 → EDINP 08-22 01:31 → SUATTDRO 08-22 01:31 → 2W 08-22 15:13

== ENCOUNTER 2022-11-01 17:20 | Inpatient (IN) ==
[2022-11-01 18:42] LABS: Basophils # (auto) 0.04 K/uL (0-0.2); Basophils % (auto) 0.5 %; Eosinophils # (auto) 0.11 K/uL (0-0.50); Eosinophils % (auto) 1.2 %; Hematocrit (blood only) 32.2 % (42.0-52.0); Hemoglobin 10.6 g/dl (14.0-18.0); Immature Granulocytes # (auto) 0.02 K/uL (0.01-0.20); Immature Granulocytes % (auto) 0.2 %; Lymphocytes # (auto) 1.14 K/uL (1.2-3.4); Lymphocytes % (auto) 12.9 %; Mean Corpuscular Hemoglobin 28.7 pg (25.0-34.0); Mean Corpuscular Hgb Conc 32.9 g/dL (32.0-36.0); Mean Corpuscular Volume 87.3 fL (80.0-100.0); Mean Platelet Volume 11.4 fL (9.4-12.4); Monocytes % (auto) 10.2 %; Neutrophils # (auto) 6.64 K/uL (1.40-6.50); Platelet Count 213 K/uL (130-400); RDW Coefficient of Variation 17.2 % (11.5-14.5); RDW Standard Deviation 52.8 fL (36.4-46.3); Red Blood Count 3.69 M/uL (4.70-6.10); White Blood Count 8.85 K/ul (4.8-10.8)
--- NOTE | 2022-11-01 18:53 | Emergency Department Note ---
ED Provider Note History of Present Illness Chief Complaint: Abnormal Labs/Diagnostic Testing Stated Complaint: REF BY FOR ABNORMAL LABS Time Seen by Provider: 11/01/22 18:48 This is a 62-year-old gentleman with a history of left kidney cancer, CKD stage III, antiphospholipid antibody syndrome, history of DVT, recent IVC filter place d 09/10/2022, recently started chemotherapy 3 weeks ago, who was referred to the emergency department by his oncologist secondary to extensive bilateral lower extremity DVTs extending into the iliac veins. Patient states that he developed bilateral leg pain and swelling which has progressed over the past 5 days. He is in severe pain right now. He saw oncology today who gave him diuretics for the edema, but also order the ultrasounds which demonstrated extensive DVTs. He denies any new abdominal pain, chest pain, shortness of breath, fever, chills, numbness tingling or weakness in his lower extremities. He has been on blood thinners in the past, but this was stopped when he was admitted in [place] 2 months ago secondary to acute hemorrhage within the inferior pole the left kidney with active extravasation and perinephric hematoma. IVC filter was placed at that time. Home Medications Medication Instructions Recorded Confirmed Type acetaminophen 500 mg capsule 500 mg PO QID PRN Pain 10/11/22 11/01/22 History multivitamin 1 tab PO QAM 10/11/22 11/01/22 History olmesartan 20 mg tablet (Benicar) 20 mg PO QAM 10/11/22 11/01/22 History oxycodone 5 mg tablet 5 mg PO HS PRN Pain 10/17/22 11/01/22 History Allergies Allergy/AdvReac Type Severity Reaction Status Date / Time No Known Allergies Allergy Verified 11/01/22 19:18 Past Med/Surg History Medical History Antiphospholipid antibody syndrome (~10/2011) Coumadin in the past- currently on hold since retroperitoneal hematoma - recent IVC filter placement 08/2022 Cancer of left kidney Reason for upcoming port placement CKD (chronic kidney disease), stage III DVT (deep venous thrombosis) Recurrent DVT/PE's per records 2011 Most recently- 09/07/22- transferred to [facility] [place] and IVC filter placed, reports on no blood thinners currently as of 10/11/22 History of COVID-19 diagnosed 2020--mild symptoms lost taste/smell--no symptoms now History of pulmonary embolism (~2011) pt unaware, had DVT's per pt Hx of melanoma of skin Hypertension Migraine headache Oral cancer surgery to remove Prostate cancer 2015 "Prostate, adenocarcinoma, jeffery 3 + 4, PSA 5.27, cT1c, group IIA" S/p prostatectomy Sleep apnea wears 02 at 2-3 LPM q HS Squamous cell carcinoma, face Surgical History H/O prostatectomy (~2014) 2015 H/O radical excision of skin lesion SCC lip lesion at [facility] [place] 2019 History of colonoscopy History of hernia repair History of left cataract extraction Hx of right cataract extraction Right. 01/19/21. 6[place] [facility] [place] ASA 3. Hx of splenectomy 1979 Port-A-Cath in place Insertion Access Port with Fluoroscopy(Left) - Timothy Thomas, , FACS S/P IVC filter Placed 09/10/22 Status post Mohs surgery Family History Mother Cervical cancer Uterine cancer Sister Uterine cancer Father Diabetes Other No family history of adverse response to anesthesia Denies family history of Ovarian cancer Prostate cancer Breast cancer Lung cancer Colorectal cancer Social History Smoking Status: Never smoker Second Hand Exposure: No; Do You Dip or Chew Tobacco: No; Hx Alcohol Use: Yes Alcohol type: beer Alcohol Intake Frequency: Monthly or Less Hx Substance Use: Yes Preferred Language: Tajik Communication Ability: Effective Visual Impairment: No Limitations Hearing Ability: Normal Offset Pressman Required: No Beliefs That Will Affect Care: None marital status: Current Living Situation: Family current occupational status: employed Feels Safe at Home: Yes Childhood Exposure to Second-Hand Smoke: Yes Diet: regular caffeine: Yes Dental Care, Regularly: Yes Physical Activity Frequency: 5-6 Times per Week Seatbelt Use: sometimes Sunscreen Use: Yes Do you think of yourself as: straight/heterosexual Assistive Devices: Glasses Physical Exam Vital Signs Vital Signs - 24 hr 11/01/22 17:31 11/01/22 19:08 11/01/22 19:01 Temperature 98.1 F Temperature Source Temporal Artery Scan Pulse Rate 83 84 90 Pulse Rate from SpO2 Sensor 82 Respiratory Rate 18 21 Respiratory Effort / Characteristics Non-Labored Respiratory Depth Normal Respiratory Pattern Regular Blood Pressure 161/90 H 165/103 H Blood Pressure Mean 113 123 Pulse Oximetry 99 97 Oxygen Delivery Method Room Air Sepsis Recent Fever Within 48 Hours No Sepsis New/Unexplained Change in Mental Status N/A Sepsis Action Taken by Nursing No Action Required 11/01/22 19:30 11/01/22 20:00 11/01/22 20:00 Temperature Temperature Source Pulse Rate 91 H 90 Pulse Rate from SpO2 Sensor 90 90 Respiratory Rate 18 21 Respiratory Effort / Characteristics Respiratory Depth Respiratory Pattern Blood Pressure 158/88 H 152/91 H Blood Pressure Mean 111 109 Pulse Oximetry 92 99 Oxygen Delivery Method Sepsis Recent Fever Within 48 Hours Sepsis New/Unexplained Change in Mental Status Sepsis Action Taken by Nursing 11/01/22 21:00 11/01/22 21:30 Temperature Temperature Source Pulse Rate 86 97 H Pulse Rate from SpO2 Sensor 85 97 H Respiratory Rate 19 14 Respiratory Effort / Characteristics Respiratory Depth Respiratory Pattern Blood Pressure 145/93 H 147/90 H Blood Pressure Mean 110 109 Pulse Oximetry 98 92 Oxygen Delivery Method Sepsis Recent Fever Within 48 Hours Sepsis New/Unexplained Change in Mental Status Sepsis Action Taken by Nursing CONSTITUTIONAL: Well developed, well nourished, appears to be in pain, shaking, HEAD: Normocephalic, atraumatic. EYES: conjunctivae normal, extraocular muscles intact. ENMT: External ears normal. Nose with normal external appearance, no congestion. NECK: Full active range of motion. LYMPHATIC: No inguinal adenopathy RESPIRATORY: Breathing unlabored and symmetric. Lungs clear to auscultation bilaterally. No wheeze, rales, or rhonchi. CARDIOVASCULAR: Regular rate and rhythm. No murmurs, rubs, or gallops. ABDOMEN: Abdomen is soft, mildly uncomfortable with diffuse palpation however no focal tenderness is appreciated. MUSCULOSKELETAL: Bilateral lower extremities are significantly edematous and diffusely tender to palpation. No significant skin color changes. 2+ pitting edema in right lower extremity, 1+ pitting edema in left lower extremity. His able to move all toes. DP pulses 2+ bilaterally SKIN: [place], warm, dry. NEUROLOGIC: Awake, alert, oriented. Gaze is conjugate. Face symmetric, speech normal. Moves head and all four extremities spontaneously. Sensation intact in bilateral lower extremities PSYCHIATRIC: Appropriate. Normal affect Course Consultations Consultation #1: Spoke with Dr. Spencer regarding the patient and case. She would like him to have a repeat CT abdomen pelvis with contrast (despite creatinine of 1.42) to evaluate the hemorrhage in his left kidney as he required 2 units of blood today outpatient. If the hemorrhage is stable or resolved, she would like him to be placed on normal dosing heparin and admitted for monitoring and eventually conve rted to Coumadin. If there is active hemorrhage or if the hematoma is larger, he will need to be transferred. She did not feel that specific imaging to evaluate for possible thrombus in the abdomen was indicated given the IVC filter and it is unlikely to change management consultant at this time. Consultation #2: Spoke with Dr. Spencer again after CT imaging resulted. She is comfortable with him being admitted here Administered Medications Heparin Sodium/Dextrose (Heparin Sodium/Dextrose) 25,000 units in 500 mls @ 19 mls/hr IV .Q24H NADINE; Protocol Stop: 12/01/22 21:44 Last Admin: 11/01/22 22:38 Dose: 950 units/hr, 19 mls/hr Documented By: PILAR Co-signed By: CC Discontinued Medications Heparin Sodium/Dextrose (Heparin Iv Adult Wt-Based Low-Dose *No* Bolus Protocol) 1 each IV ONE ONE; Protocol Stop: 11/01/22 21:35 Last Admin: 11/01/22 22:37 Dose: 1 each Documented By: PILAR Hydromorphone HCl (Hydromorphone Inj 1 Mg/Ml Syringe) 1 mg IV NOW STA Stop: 11/01/22 19:14 Last Admin: 11/01/22 19:22 Dose: 1 mg Documented By: PILAR Hydromorphone HCl (Hydromorphone Inj 0.5 Mg/0.5 Ml Syr) 0.5 mg IV NOW STA Stop: 11/01/22 23:04 Last Admin: 11/01/22 23:20 Dose: 0.5 mg Documented By: PILAR Ioversol (Optiray 320 100ml) 93 ml IV ONCE ONE Stop: 11/01/22 20:24 Last Admin: 11/01/22 20:23 Dose: 93 ml Documented By: JENNIE Medical Decision Making Differential Diagnosis Lower extremity DVT, abdominal thrombus, doubt PE (IVC filter in place), dependent edema, cellulitis, anemia, renal hemorrhage, CHF, among other pathology Medical Records Attestation: I reviewed the patient's medical records. (Reviewed records from [facility] regarding prior admission in August of this year. Reviewed outpatient ultrasound of the lower extremity DVTs) Laboratory Data 11/01/22 17:54 11/01/22 17:54 Lab Results 11/01/22 11/01/22 11/01/22 Range/Units 17:54 17:54 17:54 WBC 8.85 (4.8-10.8) K/ul RBC 3.69 L (4.70-6.10) M/uL Hgb 10.6 L (14.0-18.0) g/dl Hct 32.2 L (42.0-52.0) % MCV 87.3 (80.0-100.0) fL MCH 28.7 (25.0-34.0) pg MCHC 32.9 (32.0-36.0) g/dL RDW Std Deviation 52.8 H (36.4-46.3) fL RDW Coeff of Ángel 17.2 H (11.5-14.5) % Plt Count 213 (130-400) K/uL MPV 11.4 (9.4-12.4) fL Immature Gran % (Auto) 0.2 % Neut % (Auto) 75.0 % Lymph % (Auto) 12.9 % Terrell % (Auto) 10.2 % Eos % (Auto) 1.2 % Baso % (Auto) 0.5 % Neut # (Auto) 6.64 H (1.40-6.50) K/uL Lymph # (Auto) 1.14 L (1.2-3.4) K/uL Terrell # (Auto) 0.90 H (0.11-0.59) K/uL Eos # (Auto) 0.11 (0-0.50) K/uL Baso # (Auto) 0.04 (0-0.2) K/uL Immature Gran # (Auto) 0.02 (0.01-0.20) K/uL PT 11.1 (9.0-12.0) Seconds INR 1.0 (0.9-1.1) APTT 26.6 (21.0-31.0) Seconds PTT Ratio 0.9 Sodium 137 (136-145) mmol/L Potassium 4.2 (3.5-5.1) mmol/L Chloride 101 (98-107) mmol/L Carbon Dioxide 28 (21-32) mmol/L Anion Gap 8 (3-11) BUN 25 H (6-23) mg/dl Creatinine 1.42 H (0.6-1.4) mg/dl Est Cr Clr Drug Dosing Not Reportable Est GFR ( Amer) 60.5 ml/min Est GFR (Non-Af Amer) 52.2 ml/min BUN/Creatinine Ratio 17.6 (10-20) Glucose 92 (70-99(Fasting)) mg/dl Calcium 9.8 (8.6-10.3) mg/dl Total Bilirubin 1.2 H (0.2-1.0) mg/dl AST 13 (13-39) U/L ALT 8 (7-52) U/L Alkaline Phosphatase 86 (34-104) U/L Total Protein 8.1 (6.0-8.3) gm/dl Albumin 4.3 (3.4-5.0) gm/dl Globulin 3.8 (2.5-4.0) gm/dl Albumin/Globulin Ratio 1.1 (0.9-2) Imaging Data Radiologist's Impression: Abdomen/Pelvis CT 11/01/22 19:44 Exam(s): CT ABDOMEN + PELVIS With Contrast IV Amt: 93ml EXAM: CT Abdomen and Pelvis With Intravenous Contrast CLINICAL HISTORY: Reason for exam: Hx L renal/retroperitoneal hemorrhage, re-evaluate. TECHNIQUE: Axial computed tomography images of the abdomen and pelvis with intravenous contrast. Automated exposure control was utilized for the study. A dose lowering technique was utilized adhering to the principles of ALARA. CONTRAST: Patient received 93ml of IV contrast COMPARISON: September 07, 2022 FINDINGS: Lung bases: Unremarkable. No mass. No consolidation. ABDOMEN: Liver: Unremarkable. No mass. Gallbladder and bile ducts: Unremarkable. No calcified stones. No ductal dilation. Pancreas: Unremarkable. No mass. No ductal dilation. Spleen: Unremarkable. No splenomegaly. Adrenals: Unremarkable. No mass. Kidneys and ureters: There is severe hydronephrosis of the left kidney with atrophy of most of the renal parenchyma. Stomach and bowel: Unremarkable. No obstruction. No mucosal thickening. PELVIS: Appendix: No findings to suggest acute appendicitis. Bladder: Unremarkable. No mass. Reproductive: Unremarkable as visualized. ABDOMEN and PELVIS: Intraperitoneal space: Unremarkable. No free air. No significant fluid collection. Retroperitoneal space: There is a lobular mass lesion measuring 9.7 x 7.7 x 12.6 cm in the left retroperitoneum which is increased in size since previous when it measured 7.8 x 6.7 x 10.9 cm. Bones/joints: No acute fracture. No dislocation. Soft tissues: Unremarkable. Vasculature: There is an IVC filter in place. No abdominal aortic aneurysm. Lymph nodes: There are multiple soft tissue nodules measuring between 0.9 and 2.8 cm scattered about the left upper quadrant of the abdomen as well as in the right suprarenal space. These are suspicious for metastasis. There is retroperitoneal lymphadenopathy is well measuring up to 1.5 cm short axis diameter, slightly larger than previous. IMPRESSION: 1. There is severe hydronephrosis of the left kidney with atrophy of most of the renal parenchyma. The hemorrhage within the left renal collecting system has resolved and the system is less dilated than previous. 2. There is a lobular mass lesion measuring 9.7 x 7.7 x 12.6 cm in the left retroperitoneum which is increased in size since previous when it measured 7.8 x 6.7 x 10.9 cm. 3. There are multiple soft tissue nodules measuring between 0.9 and 2.8 cm scattered about the left upper quadrant of the abdomen as well as in the right suprarenal space. These are suspicious for metastasis. There is retroperitoneal lymphadenopathy is well measuring up to 1.5 cm short axis diameter, slightly larger than previous. Electronically signed by: Gerardo Willis MD 11/01/22 21:16 PM ECG Data Attestation: I personally reviewed and interpreted this ECG as follows: (Sinus rhythm with a rate of 87. Intervals within normal limits. Normal axis. No acute ST elevation or evidence of ischemia.) MDM Narrative This is a 62-year-old gentleman with a complex history as described above who was referred to the emergency department by his oncologist for extensive bilateral lower extremity DVTs extending into the iliac veins. See above for further detail. When I initially evaluated the patient, he was in significant pain so Dilaudid was ordered and this was therapeutic. An IV had been inserted, EKG obtained, and labs were ordered from triage. EKG was unremarkable. Heart rate hovering just under 100, no hypoxemia. His legs are quite edematous and diffusely tender. Abdominal exam is nonfocal. Labs: No leukocytosis or leukopenia. Hemoglobin 10.6 which is actually improved from 2 days ago likely secondary to receiving 2 units of blood outpatient today. Coags are normal. Creatinine 1.42 which is his high baseline. Nonspecific elevation of total bilirubin 1.2 Case was reviewed with ED attending Dr. Weber I discussed the case with Dr. Spencer (patient's oncologist) as described above in the consultation section who made specific recommendations. CT abdomen pelvis demonstrates progression of renal mass with evidence suspicious for metastasis, however the hemorrhage has resolved. This was reviewed with Dr. Spencer who recommends starting patient on heparin and medical admission. See above for further details. Patient requested 1 additional dose of Dilaudid, he otherwise rested comfortably heart rate maintained in the 90s. I discussed the case with Dr. Willis ([facility] hospitalist group) who agrees to admit the patient for ongoing management. Impression Acute bilateral deep vein thrombosis (DVT) of iliac veins of lower extremities Discharge Plan Visit Data Chief Complaint: Abnormal Labs/Diagnostic Testing Stated Complaint: REF BY FOR ABNORMAL LABS ED Provider: Silas Hicks ED Midlevel Provider: Manoj Unger Discharge Problem: Acute bilateral deep vein thrombosis (DVT) of iliac veins of lower extremities Patient Disposition: Admitted As Inpatient Condition: Fair Forms Stand Alone Forms: [facility] [employer] Prescriptions Prescriptions: No Action multivitamin Tablet 1 tab PO QAM olmesartan [Benicar] 20 mg tablet 20 mg PO QAM acetaminophen 500 mg Capsule 500 mg PO QID PRN (Reason: Pain) oxycodone 5 mg Tablet 5 mg PO HS PRN (Reason: Pain) Rx Instructions: Pt unsure of dose amt. He thinks it's possibly 5mg Referrals Referrals: Tomasz De La Cruz DO [Primary Care Provider] -
[2022-11-01 19:03] LABS: Alanine Aminotransferase 8 U/L (7-52); Albumin Globulin Ratio 1.1 (0.9-2); Albumin Level 4.3 gm/dl (3.4-5.0); Alkaline Phosphatase 86 U/L (34-104); Anion Gap 8 (3-11); Aspartate Aminotransferase 13 U/L (13-39); BUN Creatinine Ratio 17.6 (10-20); Bilirubin,Total 1.2 mg/dl (0.2-1.0); Blood Urea Nitrogen 25 mg/dl (6-23); Calcium 9.8 mg/dl (8.6-10.3); Carbon Dioxide 28 mmol/L (21-32); Chloride 101 mmol/L (98-107); Est GFR (African American) 60.5 ml/min; Est GFR (Non-African American) 52.2 ml/min; Globulin 3.8 gm/dl (2.5-4.0); Glucose 92 mg/dl (70-99(Fasting)); Potassium 4.2 mmol/L (3.5-5.1); Sodium 137 mmol/L (136-145); Total Protein 8.1 gm/dl (6.0-8.3)
[2022-11-01 19:11] LABS: Partial Thromboplastin Ratio 0.9; Partial Thromboplastin Time 26.6 Seconds (21.0-31.0); Prothrombin Time 11.1 Seconds (9.0-12.0)
[2022-11-01] MEDS ORDERED: HYDROmorphone INJ 1 MG/ML SYRINGE IV STA (19:13)
[2022-11-01] MEDS ORDERED: OPTIRAY 320 100ml IV ONE (20:23)
--- NOTE | 2022-11-01 21:17 | CT Scan Report ---
Exam(s): CT ABDOMEN + PELVIS With Contrast IV Amt: 93ml EXAM: CT Abdomen and Pelvis With Intravenous Contrast CLINICAL HISTORY: Reason for exam: Hx L renal/retroperitoneal hemorrhage, re-evaluate. TECHNIQUE: Axial computed tomography images of the abdomen and pelvis with intravenous contrast. Automated exposure control was utilized for the study. A dose lowering technique was utilized adhering to the principles of ALARA. CONTRAST: Patient received 93ml of IV contrast COMPARISON: September 07, 2022 FINDINGS: Lung bases: Unremarkable. No mass. No consolidation. ABDOMEN: Liver: Unremarkable. No mass. Gallbladder and bile ducts: Unremarkable. No calcified stones. No ductal dilation. Pancreas: Unremarkable. No mass. No ductal dilation. Spleen: Unremarkable. No splenomegaly. Adrenals: Unremarkable. No mass. Kidneys and ureters: There is severe hydronephrosis of the left kidney with atrophy of most of the renal parenchyma. Stomach and bowel: Unremarkable. No obstruction. No mucosal thickening. PELVIS: Appendix: No findings to suggest acute appendicitis. Bladder: Unremarkable. No mass. Reproductive: Unremarkable as visualized. ABDOMEN and PELVIS: Intraperitoneal space: Unremarkable. No free air. No significant fluid collection. Retroperitoneal space: There is a lobular mass lesion measuring 9.7 x 7.7 x 12.6 cm in the left retroperitoneum which is increased in size since previous when it measured 7.8 x 6.7 x 10.9 cm. Bones/joints: No acute fracture. No dislocation. Soft tissues: Unremarkable. Vasculature: There is an IVC filter in place. No abdominal aortic aneurysm. Lymph nodes: There are multiple soft tissue nodules measuring between 0.9 and 2.8 cm scattered about the left upper quadrant of the abdomen as well as in the right suprarenal space. These are suspicious for metastasis. There is retroperitoneal lymphadenopathy is well measuring up to 1.5 cm short axis diameter, slightly larger than previous. IMPRESSION: 1. There is severe hydronephrosis of the left kidney with atrophy of most of the renal parenchyma. The hemorrhage within the left renal collecting system has resolved and the system is less dilated than previous. 2. There is a lobular mass lesion measuring 9.7 x 7.7 x 12.6 cm in the left retroperitoneum which is increased in size since previous when it measured 7.8 x 6.7 x 10.9 cm. 3. There are multiple soft tissue nodules measuring between 0.9 and 2.8 cm scattered about the left upper quadrant of the abdomen as well as in the right suprarenal space. These are suspicious for metastasis. There is retroperitoneal lymphadenopathy is well measuring up to 1.5 cm short axis diameter, slightly larger than previous. Electronically signed by: Gerardo Willis MD 11/01/22 21:16 PM
[2022-11-01] MEDS ORDERED: Heparin IV Adult Wt-Based Low-Dose *NO* Bolus Protocol IV ONE (21:34)
--- NOTE | 2022-11-01 22:16 | History & Physical Report ---
Date of Service November 01, 2022 Assessment & Plan (1) Acute bilateral deep vein thrombosis (DVT) of iliac veins of lower extremities: Plan: 62 yo male with PMHx of CKD stage III, antiphospholipid syndrome, h/o DVT, recent IVC filter placed 09/10/2022, h/o prostate cancer s/p prostatectomy, h/o splenectomy, perinephric hematoma with hemorrhage, and recently started chemotherapy 3 weeks ago for L urothelial kidney cancer was referred by his oncologist secondary to extensive bilateral lower extremity DVTs extending into the iliac veins. #Bilateral LE DVT -1-2 wks bilateral LE swelling with groin pain. Outpatient venous doppler showed extensive bilateral lower extremity DVT as described above including the bilateral iliac veins. He does have an IVC filter in place. Afebrile. Tachycardic 90s, O2 sat 90s on room air. Does endorse some sob on exertion. -CT A/P: hemorrhage within the left renal collecting system has resolved -ED did speak with Dr. Spencer. Heparin gtt started. Heme/onc following. Likely will need transition back on to coumadin as long as no further bleeding. -CTA chest pending; r/o pe and ?port site hemorrhage -pain control, monitor on tele #L Urothelial Kidney Carcinoma -follows with [facility] heme/onc. First chemo session 3 wks ago. Has port in L chest. -CT A/P: severe hydronephrosis of the left kidney with atrophy of most of the renal parenchyma. Lobular mass lesion measuring 9.7 x 7.7 x 12.6 cm in the left retroperitoneum which is increased in size since previous when it measured 7.8 x 6.7 x 10.9 cm. Multiple soft tissue nodules measuring between 0.9 and 2.8 cm scattered about the left upper quadrant of the abdomen as well as in the right suprarenal space.Suspicious for metastasis. Retroperitoneal lymphadenopathy measuring up to 1.5 cm, slightly larger than previous. #SAPNA on CKD stage 3 -Cr on admission 1.42. Baseline ~1.2. Likely due to L hydronephrosis. Monitor. #Anemia -hgb 10.6 on admission. Chronic. Likely due to cancer and chemo. He did receive 2 units of blood earlier today as outpatient. #Antiphospholipid syndrome -previously on long chain quiller tender coumadin however this was d/c'd in August 2022 due to perinephric hematoma/hemorrhage. IVC filter was subsequently placed at [facility] which he still has. Has not been on anticoagulation since. #HTN -previously on amlodipine and olmesartan. Both d/c'd in the past few weeks d/t ?leg swelling, ?SAPNA? DVT ppx: heparin gtt FEN/GI: regular Code Status: full Dispo: med tele (2) Antiphospholipid antibody syndrome: (3) Asplenia: (4) CKD (chronic kidney disease), stage III: (5) Anemia: (6) Urothelial carcinoma of kidney: (7) H/O prostatectomy: (8) Hypertension: History of Present Illness Chief Complaint: DVT Primary Care Provider: Tomasz De La Cruz DO 62 yo male with PMHx of CKD stage III, antiphospholipid syndrome, h/o DVT, recent IVC filter placed 09/10/2022, h/o prostate cancer s/p prostatectomy, h/o splenectomy, perinephric hematoma with hemorrhage, and recently started chemotherapy 3 weeks ago for L urothelial kidney cancer was referred by his oncologist secondary to extensive bilateral lower extremity DVTs extending into the iliac veins. Patient was previously on long chain quiller tender coumadin for antiphospholipid syndrome however this was d/c'd in August 2022 due to perinephria hematoma/hemorrhage and an IVC filter was placed which he still has in place. He was diagnosed with L urothelial kidney carcinoma and recently had a port placed in his L chest and his first session of chemo 3 weeks ago. 1-2 wks ago patient started developing bilateral groin pain and leg swelling which is atypical for him. Outpatient venous doppler showed extensive bilateral DVT. Some sob on exertion. Denies headache, chest pain, abd pain, N/V/D, constipation, dysuria, fatigue. Of note, pt does endorse some bruising around his port site which developed 1.5 wks ago suddenly without trauma. Allergies Allergy/AdvReac Type Severity Reaction Status Date / Time No Known Allergies Allergy Verified 11/01/22 19:18 Home Medications Medication Instructions Recorded Confirmed Type acetaminophen 500 mg capsule 500 mg PO QID PRN Pain 10/11/22 11/01/22 History multivitamin 1 tab PO QAM 10/11/22 11/01/22 History olmesartan 20 mg tablet (Benicar) 20 mg PO QAM 10/11/22 11/01/22 History oxycodone 5 mg tablet 5 mg PO HS PRN Pain 10/17/22 11/01/22 History Past Med/Surg History Medical History Antiphospholipid antibody syndrome (~10/2011) Coumadin in the past- currently on hold since retroperitoneal hematoma - recent IVC filter placement 08/2022 Cancer of left kidney Reason for upcoming port placement CKD (chronic kidney disease), stage III DVT (deep venous thrombosis) Recurrent DVT/PE's per records 2011 Most recently- 09/07/22- transferred to [facility] and IVC filter placed, reports on no blood thinners currently as of 10/11/22 History of COVID-19 diagnosed 2020--mild symptoms lost taste/smell--no symptoms now History of pulmonary embolism (~2011) pt unaware, had DVT's per pt Hx of melanoma of skin Hypertension Migraine headache Oral cancer surgery to remove Prostate cancer 2015 "Prostate, adenocarcinoma, jeffery 3 + 4, PSA 5.27, cT1c, group IIA" S/p prostatectomy Sleep apnea wears 02 at 2-3 LPM q HS Squamous cell carcinoma, face Surgical History H/O prostatectomy (~2014) 2016 H/O radical excision of skin lesion SCC lip lesion at [facility] 2019 History of colonoscopy History of hernia repair History of left cataract extraction Hx of right cataract extraction Right. 01/19/21. 6mg versed at [facility]. Pt made ASA 3. Hx of splenectomy 1978 Port-A-Cath in place Insertion Access Port with Fluoroscopy(Left) - Timothy Thomas, , FACS S/P IVC filter Placed 09/10/22 Status post Mohs surgery Family History Mother Cervical cancer Uterine cancer Sister Uterine cancer Father Diabetes Other No family history of adverse response to anesthesia Denies family history of Ovarian cancer Prostate cancer Breast cancer Lung cancer Colorectal cancer Social History Smoking Status: Never smoker Second Hand Exposure: No; Do You Dip or Chew Tobacco: No; Hx Alcohol Use: No Hx Substance Use: No Preferred Language: Pashto Communication Ability: Effective Visual Impairment: No Limitations Hearing Ability: Normal Industrial Education Instructor Required: No Beliefs That Will Affect Care: None marital status: Current Living Situation: Alone current occupational status: employed Feels Safe at Home: Yes Safety Concerns: Feels Safe At This Time Childhood Exposure to Second-Hand Smoke: Yes Diet: regular caffeine: Yes Dental Care, Regularly: Yes Physical Activity Frequency: 5-6 Times per Week Seatbelt Use: sometimes Sunscreen Use: Yes Do you think of yourself as: straight/heterosexual Assistive Devices: Oxygen - at Night and Walker Review of Systems Review of Systems: All systems reviewed & are unremarkable except as noted in HPI & below Physical Exam Physical Exam: Constitutional: in no acute distress, pleasant and normal affect, intact memory. AOx3. Vitals as above. HEENT: No scleral injection or discharge.Moist mucous membranes. Neck: Supple without lymphadenopathy or thyromegaly. Trachea midline. Lungs: Clear to auscultation bilaterally with good effort. No wheezes/rales/rhonchi. Cardiac: Regular rate and rhythm.No murmurs.+bilateral nonpitting and 1+ pitting edema lower extremities bilaterally. 1+ distal peripheral pulses. Abdomen: Bowel sounds present. Soft and nondistended.Mild tenderness on L abdomen. No guarding or rebound.No hepatosplenomegaly. MSK: No cyanosis or clubbing. Extremities motor strength 5/5. Skin: +port on L chest in place with surrounding chest wall ecchymosis which is nontender to palpation Neurologic: no focal tenderness Results & Data Results & Data Vital Signs (Past 12 Hours) Vital Signs Temp Pulse Resp BP Pulse Ox O2 Del Method 11/01/22 21:30 97 H 14 147/90 H 92 11/01/22 21:00 86 19 145/93 H 98 11/01/22 20:00 90 21 99 11/01/22 20:00 152/91 H 11/01/22 19:30 91 H 18 158/88 H 92 11/01/22 19:01 90 21 165/103 H 97 11/01/22 19:08 84 11/01/22 17:31 36.7 C 83 18 161/90 H 99 Room Air Laboratory Results Laboratory Results WBC 8.85 K/ul (4.8-10.8) 11/01/22 17:54 RBC 3.69 M/uL (4.70-6.10) L 11/01/22 17:54 Hgb 10.6 g/dl (14.0-18.0) L 11/01/22 17:54 Hct 32.2 % (42.0-52.0) L 11/01/22 17:54 MCV 87.3 fL (80.0-100.0) 11/01/22 17:54 MCH 28.7 pg (25.0-34.0) 11/01/22 17:54 MCHC 32.9 g/dL (32.0-36.0) 11/01/22 17:54 RDW Std Deviation 52.8 fL (36.4-46.3) H 11/01/22 17:54 RDW Coeff of Ángel 17.2 % (11.5-14.5) H 11/01/22 17:54 Plt Count 213 K/uL (130-400) 11/01/22 17:54 MPV 11.4 fL (9.4-12.4) 11/01/22 17:54 Immature Gran % (Auto) 0.2 % 11/01/22 17:54 Neut % (Auto) 75.0 % 11/01/22 17:54 Lymph % (Auto) 12.9 % 11/01/22 17:54 [place] % (Auto) 10.2 % 11/01/22 17:54 Eos % (Auto) 1.2 % 11/01/22 17:54 Baso % (Auto) 0.5 % 11/01/22 17:54 Neut # (Auto) 6.64 K/uL (1.40-6.50) H 11/01/22 17:54 Lymph # (Auto) 1.14 K/uL (1.2-3.4) L 11/01/22 17:54 [place] # (Auto) 0.90 K/uL (0.11-0.59) H 11/01/22 17:54 Eos # (Auto) 0.11 K/uL (0-0.50) 11/01/22 17:54 Baso # (Auto) 0.04 K/uL (0-0.2) 11/01/22 17:54 Immature Gran # (Auto) 0.02 K/uL (0.01-0.20) 11/01/22 17:54 PT 11.1 Seconds (9.0-12.0) 11/01/22 17:54 INR 1.0 (0.9-1.1) 11/01/22 17:54 APTT 26.6 Seconds (21.0-31.0) 11/01/22 17:54 PTT Ratio 0.9 11/01/22 17:54 Sodium 137 mmol/L (136-145) 11/01/22 17:54 Potassium 4.2 mmol/L (3.5-5.1) 11/01/22 17:54 Chloride 101 mmol/L (98-107) 11/01/22 17:54 Carbon Dioxide 28 mmol/L (21-32) 11/01/22 17:54 Anion Gap 8 (3-11) 11/01/22 17:54 BUN 25 mg/dl (6-23) H 11/01/22 17:54 Creatinine 1.42 mg/dl (0.6-1.4) H 11/01/22 17:54 Est Cr Clr Drug Dosing Not Reportable 11/01/22 17:54 Est GFR ( Amer) 60.5 ml/min 11/01/22 17:54 Est GFR (Non-Af Amer) 52.2 ml/min 11/01/22 17:54 BUN/Creatinine Ratio 17.6 (10-20) 11/01/22 17:54 Glucose 92 mg/dl (70-99(Fasting)) 11/01/22 17:54 Calcium 9.8 mg/dl (8.6-10.3) 11/01/22 17:54 Total Bilirubin 1.2 mg/dl (0.2-1.0) H 11/01/22 17:54 AST 13 U/L (13-39) 11/01/22 17:54 ALT 8 U/L (7-52) 11/01/22 17:54 Alkaline Phosphatase 86 U/L (34-104) 11/01/22 17:54 Total Protein 8.1 gm/dl (6.0-8.3) 11/01/22 17:54 Albumin 4.3 gm/dl (3.4-5.0) 11/01/22 17:54 Globulin 3.8 gm/dl (2.5-4.0) 11/01/22 17:54 Albumin/Globulin Ratio 1.1 (0.9-2) 11/01/22 17:54 Impressions Abdomen/Pelvis CT 11/01/22 19:44 Exam(s): CT ABDOMEN + PELVIS With Contrast IV Amt: 93ml EXAM: CT Abdomen and Pelvis With Intravenous Contrast CLINICAL HISTORY: Reason for exam: Hx L renal/retroperitoneal hemorrhage, re-evaluate. TECHNIQUE: Axial computed tomography images of the abdomen and pelvis with intravenous contrast. Automated exposure control was utilized for the study. A dose lowering technique was utilized adhering to the principles of ALARA. CONTRAST: Patient received 93ml of IV contrast COMPARISON: September 07, 2022 FINDINGS: Lung bases: Unremarkable. No mass. No consolidation. ABDOMEN: Liver: Unremarkable. No mass. Gallbladder and bile ducts: Unremarkable. No calcified stones. No ductal dilation. Pancreas: Unremarkable. No mass. No ductal dilation. Spleen: Unremarkable. No splenomegaly. Adrenals: Unremarkable. No mass. Kidneys and ureters: There is severe hydronephrosis of the left kidney with atrophy of most of the renal parenchyma. Stomach and bowel: Unremarkable. No obstruction. No mucosal thickening. PELVIS: Appendix: No findings to suggest acute appendicitis. Bladder: Unremarkable. No mass. Reproductive: Unremarkable as visualized. ABDOMEN and PELVIS: Intraperitoneal space: Unremarkable. No free air. No significant fluid collection. Retroperitoneal space: There is a lobular mass lesion measuring 9.7 x 7.7 x 12.6 cm in the left retroperitoneum which is increased in size since previous when it measured 7.8 x 6.7 x 10.9 cm. Bones/joints: No acute fracture. No dislocation. Soft tissues: Unremarkable. Vasculature: There is an IVC filter in place. No abdominal aortic aneurysm. Lymph nodes: There are multiple soft tissue nodules measuring between 0.9 and 2.8 cm scattered about the left upper quadrant of the abdomen as well as in the right suprarenal space. These are suspicious for metastasis. There is retroperitoneal lymphadenopathy is well measuring up to 1.5 cm short axis diameter, slightly larger than previous. IMPRESSION: 1. There is severe hydronephrosis of the left kidney with atrophy of most of the renal parenchyma. The hemorrhage within the left renal collecting system has resolved and the system is less dilated than previous. 2. There is a lobular mass lesion measuring 9.7 x 7.7 x 12.6 cm in the left retroperitoneum which is increased in size since previous when it measured 7.8 x 6.7 x 10.9 cm. 3. There are multiple soft tissue nodules measuring between 0.9 and 2.8 cm scattered about the left upper quadrant of the abdomen as well as in the right suprarenal space. These are suspicious for metastasis. There is retroperitoneal lymphadenopathy is well measuring up to 1.5 cm short axis diameter, slightly larger than previous. Electronically signed by: Gerardo Willis MD 11/01/22 21:16 PM Supervising Physician Co-Signing Physician Notes Patient seen and examined, chart reviewed, case discussed with Dr. Lisa and I agree with the assessment and plan as above Resident Activity Tracking Resident Involvement: Resident Care Provided Care Provided: Adult [facility] Medicine
[2022-11-01] MEDS: HEPARIN SODIUM/DEXTROSE 25,000 UNITS/500 ML BAG IV SCH (22:38)
[2022-11-01] MEDS ORDERED: HYDROmorphone INJ 0.5 MG/0.5 ML SYR IV STA (23:03)
[2022-11-02] MEDS ORDERED: HYDROmorphone INJ 0.5 MG/0.5 ML SYR IV PRN (02:17)
[2022-11-02] MEDS ORDERED: ONDANSETRON 4 MG OD TAB PO PRN (02:17)
[2022-11-02] MEDS ORDERED: HYDROmorphone INJ 0.5 MG/0.5 ML SYR IV STA (02:51)
[2022-11-02 05:55] LABS: Appearance Urine Clear (Clear); Bacteria Urine Automated Negative (Negative); Bilirubin Urine Negative (Negative); Blood Urine Trace (Negative); Color Urine Yellow; Glucose Urine UA Negative (Negative); Ketones Urine Negative (Negative); Leukocyte Esterase Urine Negative (Negative); Nitrite Urine Negative (Negative); Protein Urine 1+ (Negative); Specific Gravity Urine > 1.045 (1.000-1.030); Urobilinogen Urine Negative (Negative); pH Urine 5.5 (4.5-7.5)
[2022-11-02 06:04] LABS: Basophils # (auto) 0.04 K/uL (0-0.2); Basophils % (auto) 0.5 %; Eosinophils % (auto) 1.3 %; Hemoglobin 9.4 g/dl (14.0-18.0); Immature Granulocytes # (auto) 0.01 K/uL (0.01-0.20); Immature Granulocytes % (auto) 0.1 %; Lymphocytes # (auto) 1.09 K/uL (1.2-3.4); Lymphocytes % (auto) 14.2 %; Mean Corpuscular Hemoglobin 28.9 pg (25.0-34.0); Mean Corpuscular Hgb Conc 33.6 g/dL (32.0-36.0); Mean Corpuscular Volume 86.2 fL (80.0-100.0); Mean Platelet Volume 11.3 fL (9.4-12.4); Monocytes % (auto) 14.3 %; Neutrophils # (auto) 5.34 K/uL (1.40-6.50); Neutrophils % (auto) 69.6 %; Platelet Count 220 K/uL (130-400); RDW Coefficient of Variation 17.3 % (11.5-14.5); RDW Standard Deviation 54.1 fL (36.4-46.3); Red Blood Count 3.25 M/uL (4.70-6.10); White Blood Count 7.68 K/ul (4.8-10.8)
[2022-11-02 06:12] LABS: Albumin Globulin Ratio 1.1 (0.9-2); Albumin Level 3.5 gm/dl (3.4-5.0); BUN Creatinine Ratio 17.5 (10-20); Bilirubin,Total 0.7 mg/dl (0.2-1.0); Calcium 9.4 mg/dl (8.6-10.3); Creatinine Clr Calc Pharmacy 69.2 ml/min; Est GFR (African American) 74.1 ml/min; Globulin 3.3 gm/dl (2.5-4.0); Potassium 4.3 mmol/L (3.5-5.1); Total Protein 6.8 gm/dl (6.0-8.3)
[2022-11-02 06:22] LABS: Partial Thromboplastin Ratio 1.1; Partial Thromboplastin Time 30.5 Seconds (21.0-31.0); Prothrombin Time 11.3 Seconds (9.0-12.0)
--- NOTE | 2022-11-02 08:24 | Electrocardiogram Report ---
Test Reason : Blood Pressure : / mmHG Vent. Rate : 087 BPM Atrial Rate : 087 BPM P-R Int : 132 ms QRS Dur : 096 ms QT Int : 356 ms P-R-T Axes : 067 041 067 degrees QTc Int : 428 ms Normal sinus rhythm Normal ECG When compared with ECG of 07-SEP-2022 06:51, Previous ECG has undetermined rhythm, needs review Nonspecific T wave abnormality no longer evident in Inferior leads Confirmed by Emre Callejas ([id number]) on 11/02/2022 8:23:35 AM Referred By: Sandy Spencer Confirmed By:Carl Callejas
[2022-11-02] MEDS: HYDROmorphone INJ 1 MG/ML SYRINGE IV PRN ×4 (08:32→20:11)
[2022-11-02] MEDS: METOPROLOL TARTRATE 25 MG TAB PO SCH ×2 (09:51→20:15)
--- NOTE | 2022-11-02 12:37 | Hospitalist Progress Note ---
Date of Service November 02, 2022 Assessment & Plan (1) Acute bilateral deep vein thrombosis (DVT) of iliac veins of lower ext remities: Plan: Currently on a heparin drip. He will be switched to Lovenox 1 mg/kg subcutaneously every 12 hours at discharge (2) CKD (chronic kidney disease), stage III: Plan: Monitor intake and output. Serial labs (3) Antiphospholipid antibody syndrome: Plan: I suspect he will be on some form of systemic anticoagulation lifelong (4) Asplenia: Plan: The patient states he had a splenectomy in the past (5) Urothelial carcinoma of kidney: Plan: Currently undergoing treatment. Continue follow-up with outpatient oncology Plan Hopeful discharge to home tomorrow, November 03, on Lovenox 1 mg/kg subcutaneously every 12 hours Admission and Anticipated Discharge Date Admission Date: November 01, 2022 Subjective Alert and oriented. He has bilateral lower extremity edema and pain related to the DVT. He is currently on a heparin drip and will need to be on Lovenox 1 mg/kg subcutaneously every 12 hours going forward. Metoprolol added for blood pressure and heart rate control. Hopefully he can go home tomorrow, November 03 Review of Systems Review of Systems: Constitutional-no fever or chills ENT-no blurred vision, no double vision, no epistaxis, no sore throat Respiratory-no cough, no wheezing, no shortness of breath Cardiac-no palpitations, no chest pain, no syncope GI-no nausea, vomiting, diarrhea, melena, hematochezia -no urinary retention, no urinary incontinence, no dysuria, no hematuria Musculoskeletal-bilateral lower extremity edema and discomfort. Skin-no bruising, no rashes, no pruritus Neuro-no isolated weakness, no paresthesia Psych-no depression, no anxiety Physical Exam Physical Exam: General-alert and oriented x3, no fevers, no chills HEENT-head atraumatic and normocephalic, pupils equal and reactive to light, extraocular muscles intact Neck-no lymphadenopathy or thyromegaly, trachea midline Chest-clear to auscultation percussion. No rales wheezing or rhonchi Cardiac-regular rate and rhythm, normal S1 and S2 Abdomen-normal bowel sounds, nontender, no hepatosplenomegaly Extremities-bilateral lower extremity edema from the thighs to the feet Neuro-cranial nerves II through XII intact, motor and sensory function within normal limits, strength symmetrical , no focal deficits Psych-normal affect, normal mood Results & Data Results & Data Vital Signs (Past 12 Hours) Vital Signs Temp Pulse Pulse Resp BP BP BP 11/02/22 10:43 36.9 C 83 20 156/91 H 11/02/22 07:58 37.0 C 95 H 20 169/96 H 11/02/22 06:00 82 11/02/22 04:01 85 11/02/22 02:15 11/02/22 02:15 36.9 C 89 16 148/77 H 11/02/22 01:00 89 17 11/02/22 01:00 158/100 H Pulse Ox O2 Del Method 11/02/22 10:43 97 Room Air 11/02/22 07:58 98 Room Air 11/02/22 06:00 11/02/22 04:01 11/02/22 02:15 Room Air 11/02/22 02:15 94 Room Air 11/02/22 01:00 94 11/02/22 01:00 Laboratory Results 11/02/22 05:26 11/02/22 05:26 PG Care Time/CCT Total # of Minutes Spent Total Time Spent with Patient: Total time spent is greater than 50% in coordination of care (as documented) at patient's floor/unit and/or counseling patient: Coding Level of Care Code 27920 SUB INP/OBS CARE 3/50MIN Diagnoses Acute bilateral deep vein thrombosis (DVT) of iliac veins of lower extremities I82.423 CKD (chronic kidney disease), stage III N18.30 Antiphospholipid antibody syndrome D68.61 Asplenia Q89.01 Urothelial carcinoma of kidney C64.9
[2022-11-02 13:03] LABS: Partial Thromboplastin Ratio 1.3; Partial Thromboplastin Time 37.1 Seconds (21.0-31.0)
--- NOTE | 2022-11-02 13:41 | Oncology Consultation ---
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 Thanks for this consult. Will plan to see him after discharge from hospital. History of Present Illness Reason for Consultation: Bilateral lower extremity DVT Attending Physician: Sesar Barrera MD History of Present Illness Mr. Orozco is a pleasant 62-year-old gentleman with reported history of antiphospholipid syndrome, recurrent DVT/PE for which he was on chronic anticoagulation with Coumadin, history of prostate cancer for which he is s/p prostatectomy in January,, remote history of splenectomy in 1978. Patient was recently diagnosed with upper tract urothelial carcinoma. Patient had presented to the ER on 08/21/2022 with left-sided abdominal pain for which CT abdomen and pelvis was obtained which revealed severe left hydronephrosis, 13 cm mass encasing and invading ureter, multiple small soft tissue nodules in the upper abdomen possibly representing splenosis postsplenectomy. He then presented again to the ER at [facility] with left sided abdominal pain radiating to his back. 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 CTA chest also on 09/07/2022 revealed no evidence of PE. Patient was subsequently transferred to [facility]. CTA abdomen and pelvis revealed small left subcapsular and perinephric hematoma with associated perinephric stranding with no evidence of active arterial extravasation and left retroperitoneal mass epicenter upon the left ureter. CT chest revealed small left pleural effusion, more likely reactive and related to pleural metastatic disease Biopsy of renal mass obtained while inpatient at [facility] on 08/24/2022 revealed urothelial carcinoma. Lower extremity ultrasound revealed acute near occlusive DVT in one of the paired below-knee popliteal veins, acute occlusive DVT in the posterior tibial and soleal vein, acute occlusive DVT in one of the paired peroneal veins and chronic nonocclusive DVT in the gastrocnemius vein. IVC filter was subsequently placed on 09/10/2022. Coumadin was not resumed upon discharge from hospital due to perinephric hematoma. Patient was evaluated by Dr. Garber at [facility] who recommended neoadjuvant systemic therapy.He received cycle 1 of chemotherapy with Gemcitabine/Cisplatin on 10/18/2022. He complained of bilateral lower extremity swelling and pain for which US LE was obtained which revealed extensive bilateral DVT. He was admitted at [facility] for close monitoring while on heparin drip due to prior history of perinephric hematoma. CT A/P obtained on admission revealed resolution of perinephric hematoma Allergies Allergy/AdvReac Type Severity Reaction Status Date / Time No Known Allergies Allergy Verified 11/01/22 19:18 Home Medications Medication Instructions Recorded Confirmed Type acetaminophen 500 mg capsule 500 mg PO QID PRN Pain 10/11/22 11/01/22 History multivitamin 1 tab PO QAM 10/11/22 11/01/22 History olmesartan 20 mg tablet (Benicar) 20 mg PO QAM 10/11/22 11/01/22 History oxycodone 5 mg tablet 5 mg PO HS PRN Pain 10/17/22 11/01/22 History Patient History Medical History Antiphospholipid antibody syndrome (~10/2011) Coumadin in the past- currently on hold since retroperitoneal hematoma - recent IVC filter placement 08/2022 Cancer of left kidney Reason for upcoming port placement CKD (chronic kidney disease), stage III DVT (deep venous thrombosis) Recurrent DVT/PE's per records 2011 Most recently- 09/07/22- transferred to [facility] and IVC filter placed, reports on no blood thinners currently as of 10/11/22 History of COVID-19 diagnosed 2020--mild symptoms lost taste/smell--no symptoms now History of pulmonary embolism (~2011) pt unaware, had DVT's per pt Hx of melanoma of skin Hypertension Migraine headache Oral cancer surgery to remove Prostate cancer 2015 "Prostate, adenocarcinoma, jeffery 3 + 4, PSA 5.27, cT1c, group IIA" S/p prostatectomy Sleep apnea wears 02 at 2-3 LPM q HS Squamous cell carcinoma, face Surgical History H/O prostatectomy (~2014) 2016 H/O radical excision of skin lesion SCC lip lesion at [facility] 2019 History of colonoscopy History of hernia repair History of left cataract extraction Hx of right cataract extraction Right. 01/19/21. 6mg [place] [facility] Pt made ASA 3. Hx of splenectomy 1979 Port-A-Cath in place Insertion Access Port with Fluoroscopy(Left) - Timothy Thomas, , FACS S/P IVC filter Placed 09/10/22 Status post Mohs surgery Family History Mother Cervical cancer Uterine cancer Sister Uterine cancer Father Diabetes Other No family history of adverse response to anesthesia Denies family history of Ovarian cancer Prostate cancer Breast cancer Lung cancer Colorectal cancer Social History Smoking Status: Never smoker Second Hand Exposure: No; Do You Dip or Chew Tobacco: No; Hx Alcohol Use: No Hx Substance Use: No Preferred Language: Mohawk Communication Ability: Effective Visual Impairment: No Limitations Hearing Ability: Normal [employer] Required: No Beliefs That Will Affect Care: None marital status: Current Living Situation: Alone current occupational status: employed Feels Safe at Home: Yes Safety Concerns: Feels Safe At This Time Childhood Exposure to Second-Hand Smoke: Yes Diet: regular caffeine: Yes Dental Care, Regularly: Yes Physical Activity Frequency: 5-6 Times per Week Seatbelt Use: sometimes Sunscreen Use: Yes Do you think of yourself as: straight/heterosexual Assistive Devices: Oxygen - at Night and Walker Results & Data Vital Signs (Past 12 Hours) Vital Signs Temp Pulse Pulse Resp BP BP BP 11/02/22 07:58 37.0 C 95 H 20 169/96 H 11/02/22 06:00 82 11/02/22 04:01 85 11/02/22 02:15 11/02/22 02:15 36.9 C 89 16 148/77 H 11/02/22 01:00 89 17 11/02/22 01:00 158/100 H 11/02/22 00:00 105 H 14 11/02/22 00:00 127/85 11/01/22 23:00 92 H 178/112 H 11/01/22 23:06 98 H Pulse Ox O2 Del Method 11/02/22 07:58 98 Room Air 11/02/22 06:00 11/02/22 04:01 11/02/22 02:15 Room Air 11/02/22 02:15 94 Room Air 11/02/22 01:00 94 11/02/22 01:00 11/02/22 00:00 92 11/02/22 00:00 11/01/22 23:00 99 11/01/22 23:06
[2022-11-02 19:55] LABS: Partial Thromboplastin Ratio 1.2
[2022-11-02] MEDS: HEPARIN SODIUM/DEXTROSE 25,000 UNITS/500 ML BAG IV SCH (20:10)
[2022-11-02] MEDS ORDERED: HEPARIN SOD (PORCINE) 1000 UNIT/ML IV ONE (20:15)
--- NOTE | 2022-11-02 22:35 | Billing Data ---
Date of Service November 01, 2022 Coding Level of Care Code 59279 INT INP/OBS CARE
[2022-11-03] MEDS: HYDROmorphone INJ 1 MG/ML SYRINGE IV PRN ×5 (01:31→23:27)
[2022-11-03 02:36] LABS: Basophils # (auto) 0.03 K/uL (0-0.2); Basophils % (auto) 0.4 %; Eosinophils # (auto) 0.13 K/uL (0-0.50); Eosinophils % (auto) 1.7 %; Hematocrit (blood only) 27.6 % (42.0-52.0); Hemoglobin 9.2 g/dl (14.0-18.0); Immature Granulocytes # (auto) 0.01 K/uL (0.01-0.20); Immature Granulocytes % (auto) 0.1 %; Lymphocytes # (auto) 1.03 K/uL (1.2-3.4); Lymphocytes % (auto) 13.8 %; Mean Corpuscular Hemoglobin 28.8 pg (25.0-34.0); Mean Corpuscular Hgb Conc 33.3 g/dL (32.0-36.0); Mean Corpuscular Volume 86.5 fL (80.0-100.0); Mean Platelet Volume 11.3 fL (9.4-12.4); Monocytes # (auto) 1.38 K/uL (0.11-0.59); Monocytes % (auto) 18.5 %; Neutrophils # (auto) 4.88 K/uL (1.40-6.50); Neutrophils % (auto) 65.5 %; Platelet Count 254 K/uL (130-400); RDW Coefficient of Variation 17.3 % (11.5-14.5); RDW Standard Deviation 54.3 fL (36.4-46.3); Red Blood Count 3.19 M/uL (4.70-6.10); White Blood Count 7.46 K/ul (4.8-10.8)
[2022-11-03 02:46] LABS: BUN Creatinine Ratio 17.9 (10-20); Calcium 9.1 mg/dl (8.6-10.3); Creatinine Clr Calc Pharmacy 74.1 ml/min; Est GFR (African American) 80.6 ml/min; Est GFR (Non-African American) 69.5 ml/min; Potassium 4.4 mmol/L (3.5-5.1)
[2022-11-03 03:11] LABS: Partial Thromboplastin Ratio 1.5
[2022-11-03 03:21] LABS: Partial Thromboplastin Time 40.9 Seconds (21.0-31.0)
--- NOTE | 2022-11-03 09:35 | Hematology/Oncology Prog Note ---
Date of Service November 03, 2022 Assessment & Plan (1) Acute bilateral deep vein thrombosis (DVT) of iliac veins of lower extremities: (2) Antiphospholipid antibody syndrome: (3) Urothelial carcinoma: Plan -Doing better overall. Still has right lower extremity swelling and pain. Recommend continuing with current treatment. Possibly discharged home tomorrow on Lovenox 1 mg/kg SC twice daily. We will work on transitioning him to warfarin as an outpatient. -Plan to treat with cycle 2 of chemotherapy with gemcitabine/cisplatin next week if clinical condition continues to improve Admission and Anticipated Discharge Date Admission Date: November 01, 2022 Subjective Improving. States that left lower extremity swelling has significantly improved. However, right leg still painful and with significant swelling. Remains on therapeutic IV heparin Results & Data Vital Signs (Past 12 Hours) Vital Signs Temp Pulse Pulse Resp BP Pulse Ox O2 Del Method 11/03/22 07:37 36.8 C 77 19 156/88 H 98 Room Air 11/03/22 07:26 82 11/03/22 03:03 36.9 C 87 18 129/81 94 Room Air 11/02/22 23:06 37.1 C 84 18 137/83 95 Room Air
[2022-11-03] MEDS: METOPROLOL TARTRATE 25 MG TAB PO SCH ×2 (10:15→20:18)
--- NOTE | 2022-11-03 14:10 | Hospitalist Progress Note ---
Date of Service November 03, 2022 Assessment & Plan (1) Recurrent deep vein thrombosis (DVT) of both lower extremities: Plan: Improving. Continue heparin drip today. Probably home tomorrow, November 04, on Lovenox 1 mg/kg subcutaneously every 12 hours (2) CKD (chronic kidney disease), stage III: Plan: Stable. Monitor intake and output. (3) Urothelial carcinoma of kidney: Plan: Oncology consultation appreciated. Continue treatment as an outpatient (4) Hypertension: Plan: Stable. Continue current medical management Plan Hopefully home tomorrow, November 04, on Lovenox 1 mg/kg subcutaneously every 12 hours Admission and Anticipated Discharge Date Admission Date: November 01, 2022 Subjective Improving. Case discussed with oncology. Less edema and less pain in both legs. We will continue heparin infusion today, November 03. Probably home tomorrow on Lovenox 1 mg/kg subcutaneously every 12 hours. Review of Systems Review of Systems: Constitutional-no fever or chills ENT-no blurred vision, no double vision, no epistaxis, no sore throat Respiratory-no cough, no wheezing, no shortness of breath Cardiac-no palpitations, no chest pain, no syncope GI-no nausea, vomiting, diarrhea, melena, hematochezia -no urinary retention, no urinary incontinence, no dysuria, no hematuria Musculoskeletal-bilateral lower extremity edema has lessened Skin-no bruising, no rashes, no pruritus Neuro-no isolated weakness, no paresthesia Psych-no depression, no anxiety Physical Exam Physical Exam: General-alert and oriented x3, no fevers, no chills HEENT-head atraumatic and normocephalic, pupils equal and reactive to light, extraocular muscles intact Neck-no lymphadenopathy or thyromegaly, trachea midline Chest-clear to auscultation percussion. No rales wheezing or rhonchi Cardiac-regular rate and rhythm, normal S1 and S2 Abdomen-normal bowel sounds, nontender, no hepatosplenomegaly Extremities-bilateral lower extremity edema from the thighs to the feet has lessened Neuro-cranial nerves II through XII intact, motor and sensory function within normal limits, strength symmetrical , no focal deficits Psych-normal affect, normal mood Results & Data Results & Data Vital Signs (Past 12 Hours) Vital Signs Temp Pulse Pulse Resp BP BP Pulse Ox 11/03/22 11:35 36.7 C 91 H 18 134/88 96 11/03/22 07:37 36.8 C 77 19 156/88 H 98 11/03/22 07:26 82 11/03/22 03:03 36.9 C 87 18 129/81 94 O2 Del Method 11/03/22 11:35 Room Air 11/03/22 07:37 Room Air 11/03/22 07:26 11/03/22 03:03 Room Air Laboratory Results 11/03/22 02:09 11/03/22 02:09 PG Care Time/CCT Total # of Minutes Spent Total Time Spent with Patient: Total time spent is greater than 50% in coordination of care (as documented) at patient's floor/unit and/or counseling patient: Coding Level of Care Code 51856 SUB INP/OBS CARE MIN Diagnoses Recurrent deep vein thrombosis (DVT) of both lower extremities I82.403 CKD (chronic kidney disease), stage III N18.30 Urothelial carcinoma of kidney C64.9 Hypertension I10
[2022-11-03] MEDS: HEPARIN SODIUM/DEXTROSE 25,000 UNITS/500 ML BAG IV SCH (17:04)
[2022-11-04] MEDS: HYDROmorphone INJ 1 MG/ML SYRINGE IV PRN ×2 (03:56→11:02)
[2022-11-04 07:04] LABS: Basophils # (auto) 0.05 K/uL (0-0.2); Basophils % (auto) 0.7 %; Eosinophils # (auto) 0.19 K/uL (0-0.50); Eosinophils % (auto) 2.5 %; Hematocrit (blood only) 29.3 % (42.0-52.0); Hemoglobin 9.7 g/dl (14.0-18.0); Immature Granulocytes # (auto) 0.04 K/uL (0.01-0.20); Immature Granulocytes % (auto) 0.5 %; Lymphocytes # (auto) 1.43 K/uL (1.2-3.4); Lymphocytes % (auto) 18.7 %; Mean Corpuscular Hemoglobin 28.8 pg (25.0-34.0); Mean Corpuscular Hgb Conc 33.1 g/dL (32.0-36.0); Mean Corpuscular Volume 86.9 fL (80.0-100.0); Mean Platelet Volume 11.8 fL (9.4-12.4); Monocytes # (auto) 1.67 K/uL (0.11-0.59); Monocytes % (auto) 21.9 %; Neutrophils # (auto) 4.26 K/uL (1.40-6.50); Neutrophils % (auto) 55.7 %; Platelet Count 314 K/uL (130-400); RDW Coefficient of Variation 17.8 % (11.5-14.5); RDW Standard Deviation 55.4 fL (36.4-46.3); Red Blood Count 3.37 M/uL (4.70-6.10); White Blood Count 7.64 K/ul (4.8-10.8)
[2022-11-04 07:38] LABS: Partial Thromboplastin Ratio 1.1; Partial Thromboplastin Time 31.9 Seconds (21.0-31.0)
[2022-11-04 07:45] LABS: Calcium 9.4 mg/dl (8.6-10.3); Potassium 4.8 mmol/L (3.5-5.1)
[2022-11-04 07:51] LABS: BUN Creatinine Ratio 16.7 (10-20); Creatinine Clr Calc Pharmacy 76.8 ml/min; Est GFR (African American) 84.2 ml/min; Est GFR (Non-African American) 72.7 ml/min
[2022-11-04] MEDS ORDERED: HEPARIN SOD (PORCINE) 1000 UNIT/ML IV ONE (08:15)
[2022-11-04] MEDS: METOPROLOL TARTRATE 25 MG TAB PO SCH (08:16)
[2022-11-04] MEDS ORDERED: ENOXAPARIN 1 MG/KG SQ SCH (10:30)
[2022-11-04] MEDS ORDERED: ENOXAPARIN 100 MG/1ML SYR SQ SCH (10:45)
--- NOTE | 2022-11-04 12:54 | Discharge Summary ---
Date of Service November 04, 2022 Admission HPI Per Admitting Provider 62 yo male with PMHx of CKD stage III, antiphospholipid syndrome, h/o DVT, recent IVC filter placed 09/10/2022, h/o prostate cancer s/p prostatectomy, h/o splenectomy, perinephric hematoma with hemorrhage, and recently started chemotherapy 3 weeks ago for L urothelial kidney cancer was referred by his oncologist secondary to extensive bilateral lower extremity DVTs extending into the iliac veins. Patient was previously on mcc coumadin for antiphospholipid syndrome however this was d/c'd in August 2022 due to perinephria hematoma/hemorrhage and an IVC filter was placed which he still has in place. He was diagnosed with L urothelial kidney carcinoma and recently had a port placed in his L chest and his first session of chemo 3 weeks ago. 1-2 wks ago patient started developing bilateral groin pain and leg swelling which is atypical for him. Outpatient venous doppler showed extensive bilateral DVT. Some sob on exertion. Denies headache, chest pain, abd pain, N/V/D, constipation, dysuria, fatigue. Of note, pt does endorse some bruising around his port site which developed 1.5 wks ago suddenly without trauma. Principal Diagnosis Bilateral lower extremity DVT Discharge Exam General-alert and oriented x3, no fevers, no chills HEENT-head atraumatic and normocephalic, pupils equal and reactive to light, extraocular muscles intact Neck-no lymphadenopathy or thyromegaly, trachea midline Chest-clear to auscultation percussion. No rales wheezing or rhonchi Cardiac-regular rate and rhythm, normal S1 and S2 Abdomen-normal bowel sounds, nontender, no hepatosplenomegaly Extremities-bilateral lower extremity edema from the thighs to the feet has lessened Neuro-cranial nerves II through XII intact, motor and sensory function within normal limits, strength symmetrical , no focal deficits Psych-normal affect, normal mood Discharge Data Allergies Allergy/AdvReac Type Severity Reaction Status Date / Time No Known Allergies Allergy Verified 11/01/22 19:18 Consultations 11/01/22 23:30 Consult Oncology Routine Ordered Studies 11/01/22 19:44 CT Abd and Pelvis [CT abd pelvis IV con only] Stat Hospital Course (1) Recurrent deep vein thrombosis (DVT) of both lower extremities: Improving. Treated while hospitalized with heparin drip. Converted to Lovenox 1 mg/kg subcutaneously every 12 hours at discharge. (2) CKD (chronic kidney disease), stage III: Stable. Monitor intake and output. (3) Urothelial carcinoma of kidney: Oncology consultation appreciated. Continue treatment as an outpatient (4) Hypertension: Stable. Continue current medical management Plan Home today, November 04. Total Time Total Time Spent Total Time Spent (In Minutes): 45 minutes Discharge Plan Discharge Items Patient Disposition: Home - Self-Care Reason For Visit: DVT Discharge Diagnosis: Bilateral lower extremity DVT Condition on Discharge: Fair Activity: Resume your previous activity Non-emergency contact: Primary Care Provider and Oncologist Call non-emergency contact if: you have any medication questions Follow-up/Referrals: Tomasz De La Cruz DO [Primary Care Provider] - Diet: Regular Addtl Attending Provider Instructions: Take Lovenox 90 mg subcutaneous injection twice daily until further notice. Metoprolol is for heart rate and blood pressure control Pending Studies at Discharge: No Stand-Alone Forms: Intelligent Apps ([email or web address]), Smoking Cessation Medications and DC Order Prescriptions: New enoxaparin 100 mg/mL Syringe 90 mg subcut Q12H Qty: 60 0RF metoprolol tartrate 25 mg Tablet 25 mg PO BID Qty: 60 0RF Continued multivitamin Tablet 1 tab PO QAM olmesartan [Benicar] 20 mg tablet 20 mg PO QAM acetaminophen 500 mg Capsule 500 mg PO QID PRN (Reason: Pain) oxycodone 5 mg Tablet 5 mg PO HS PRN (Reason: Pain) Rx Instructions: Pt unsure of dose amt. He thinks it's possibly 5mg Discharge Orders: Discharge Order (Routine); Ordered 11/04/22 Ordered By: Sesar Barrera Admission Data Admit Date/Time: 11/01/22 23:27 Attending Provider: Sesar Barrera Admit Provider: Lance Lisa Primary Care Provider: Tomasz De La Cruz Other Providers: Sandy Spencer Coding Level of Care Code 01944 INP/OBS DISCH >30 MIN Diagnoses Recurrent deep vein thrombosis (DVT) of both lower extremities I82.403 CKD (chronic kidney disease), stage III N18.30 Urothelial carcinoma of kidney C64.9 Hypertension I10
== END 2022-11-04 15:19 | disposition home or self-care (01) | DRG 300 ==
LOC: ED 17:20 → 2N 23:27 → SUATTDRO 23:27 → 2N 11-02 02:05